=== PATIENT | female | born 1990 | race African-American/Black ===

== ENCOUNTER 2018-09-26 08:05 | Observation (INO) | payer OTHER, SELFPAY ==
[2018-09-26] MEDS ORDERED: Lorazepam 2 MG/ML VIAL ONE (08:27)
[2018-09-26] MEDS ORDERED: Fosphenytoin Sodium 750 MG in Sodium Chloride 0.9% 50 ML IVPB SCH (08:45)
[2018-09-26 08:50] LABS: #Basophils 0.1 thou/uL (0.0-0.2); #Lymphocytes 1.5 thou/uL (1.20-3.40); #Monocytes 0.3 thou/uL (0.11-0.59); #Neutrophils 8.9 thou/uL (1.40-6.50); %Basophils 0.5 % (0.0-1.0); %Eosinophils 0.1 % (0.0-10.0); %Lymphocytes 13.6 % (21.0-51.0); %Monocytes 2.5 % (0.0-10.0); %Neutrophils 83.3 % (42.0-75.0); Hemoglobin 13.1 g/dL (12.0-16.0); Mean Corpuscular HGB CONC 31.9 g/dL (32.0-36.0); Mean Corpuscular Volume 93.8 fL (78.0-98.0); Mean Platelet Volume 6.7 fL (7.4-10.4); Platelet Count 298 thou/uL (130-400); RBC Distribution Width 12.3 % (11.5-14.5); Red Blood Cell (RBC) Count 4.36 mill/uL (4.20-5.40); White Blood Cell (WBC) Count 10.7 thou/uL (4.8-10.8)
[2018-09-26 09:00] LABS: BHCG - Serum Negative (NEGATIVE); Pregs Control Background? CLEAR/WHITE (CLR/WHITE); Pregs Control Bar Appear? YES (CONTROL BAR)
[2018-09-26 09:05] LABS: ALT (SGPT) 10 U/L (8-55); AST (SGOT) 18 U/L (5-34); Acetaminophen Less than 6.0 mcg/mL (10.0-30.0); Albumin 4.1 g/dL (3.5-5.0); Alcohol Less than 10 mg/dL (Less than 10); Alkaline Phosphatase 95 U/L (40-150); Anion Gap 20 mmol/L (10-20); BUN (Urea Nitrogen) 5 mg/dL (7.0-18.7); Bilirubin, Total 0.5 mg/dL (0.2-1.2); Calc. Creatinine Clearance 0 mL/min (70-130); Calcium 8.6 mg/dL (7.8-10.44); Carbon Dioxide 14 mmol/L (22-29); Chloride 107 mmol/L (98-107); Estimated GFR-MDRD Greater than 90; Globulin 3.8 g/dL (2.4-3.5); Glucose 140 mg/dL (70-105); Potassium 3.4 mmol/L (3.5-5.1); Protein, Total 7.9 g/dL (6.0-8.3); Salicylate Less than 8.0 mg/dL (15.0-30.0); Sodium 138 mmol/L (136-145)
[2018-09-26 09:09] LABS: CKMB 1.7 ng/mL (0-6.6); Troponin I Less than 0.010 ng/mL (< 0.028)
[2018-09-26] MEDS ORDERED: Ondansetron PF 4 MG/2 ML Vial ONE (09:13)
[2018-09-26 09:32] LABS: Thyroid Stimulating Hormone 1.7067 uIU/mL (0.35-4.94)
--- NOTE | 2018-09-26 10:46 | CT ---
CT BRAIN WITHOUT CONTRAST: Date: 09/26/18 HISTORY: Seizure. COMPARISON: None. FINDINGS: No acute infarct or hemorrhage. No midline shift or mass effect. Ventricular size and extra-axial CSF spaces are normal. Paranasal sinuses and mastoids are clear. IMPRESSION: No acute intracranial abnormality. POS: [facility]
[2018-09-26 11:04] LABS: Bilirubin Negative (Negative); Blood, Urine Large (Negative); Glucose, Urine (Dipstick) Negative (Negative); Leukocyte Negative (Negative); Nitrite Negative (Negative); Protein, Urine (Dipstick) Negative (Neg-Trace); Specific Gravity, Urine 1.025 (1.005-1.030); Urobilinogen 0.2 mg/dL (0.2-1.0)
[2018-09-26 11:05] LABS: Clarity Clear (Clear)
[2018-09-26 11:16] LABS: Bacteria/HPF None Seen HPF (None Seen); Hyaline Casts/LPF 0-3 HYALINE CAST LPF (0-3 Hyaline); RBC/HPF 0-3 HPF (0-3); Renal Epithelial None Seen HPF (0-3); Transitional Epithelial NONE SEEN HPF (0-3); WBC/HPF 0-3 HPF (0-3)
[2018-09-26 11:20] LABS: Amphetamine Not Detected (NotDetected); Barbiturates Screen Detected (NotDetected); Benzodiazepine Screen Not Detected (NotDetected); Cocaine Metabolite Screen Not Detected (NotDetected); Medtox Control Line Valid? VALID (VALID); Medtox Reader # READER 4; Methadone Not Detected (NotDetected); Methamphetamine Not Detected (NotDetected); Opiate Screen Not Detected (NotDetected); Oxycodone Screen Not Detected (NotDetected); Phencyclidine (PCP) Not Detected (NotDetected); THC/Cannabinoid Screen Not Detected (NotDetected); Tricyclic Screen Not Detected (NotDetected)
[2018-09-26] MEDS ORDERED: Lorazepam 2 MG/ML VIAL SLOW IVP PRN (15:40)
[2018-09-26] MEDS ORDERED: Sodium Chloride 0.9% 1,000 ML IV SCH (15:45)
[2018-09-26] MEDS ORDERED: Ondansetron PF 4 MG/2 ML Vial IVP PRN (15:52)
[2018-09-26] MEDS ORDERED: Ondansetron ODT 4 MG TAB PO PRN (15:52)
[2018-09-26 16:19] VITALS: BMI 26.7
--- NOTE | 2018-09-26 16:23 | HP ---
DATE OF ADMISSION: 09/26/2018 PRIMARY CARE PHYSICIAN: Gil flor. CHIEF COMPLAINT: Seizure. HISTORY OF PRESENT ILLNESS: This is a 28-year-old female who presented to [facility] Emergency Department after apparently a witnessed seizure occurred at her home in the sam y morning hours of 09/26/2018. The history is obtained after discussions with the patient's brother who did witness his sister having a seizure. The patient apparently was supposed to be at latter day. W hen her brother called her to see if she was ready, she did not respond. The brother went to her sravani e where he discovered her in bed having active seizure with frothing at the mouth, tonic clonic type activity, at which point he called EMS. The brother rolled the patient on her side, at which point [facility] personnel arrived and brought the patient in for evaluation. In the emergency room, the patient a pparently was noted with more seizure-like activity by emergency room staff. The patient received Zo karo, Cerebyx and intravenous normal saline. The patient's seizure rapidly responded and the patient states she feels fine currently. The patient was noted by the ER attending with some confusion and postictal state on initial evaluation. The patient denies any known history of seizures, recent trau ma, injury, exposure history, alcohol or drug use. The patient denies any head trauma, recent motor vehicle accidents, unilateral weakness, visual disturbance or sleep deprivation. The patient states she has a remote history of asthma, but does not take any medications on a regular basis. CT imaging of the brain done in the emergency room showed no acute process and screening metabolic survey showe d a mildly elevated prolactin level. PAST MEDICAL HISTORY: Question of childhood asthma. PAST SURGICAL HISTORY: Reviewed and negative. CURRENT MEDICATIONS: Primatene mist p.r.n. ALLERGIES: No known drug allergies. FAMILY HISTORY: No inheritable diseases per patient report. SOCIAL HISTORY: No tobacco or illicit drug use. Occasional alcohol use. Functional of all of activ ities of daily living. 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 REVIEW OF SYSTEMS: The following complete review of systems was negative, unless otherwise mentioned in the HPI or below: Constitutional: Weight loss or gain, ability to conduct usual activities. Sk in: Rash, itching. Eyes: Double vision, pain. ENT/Mouth: Nose bleeding, neck stiffness, pain, te nderness. Cardiovascular: Palpitations, dyspnea on exertion, orthopnea. Respiratory: Shortness of breath, wheezing, cough, hemoptysis, fever or night sweats. Gastrointestinal: Poor appetite, abdom inal pain, heartburn, nausea, vomiting, constipation, or diarrhea. Genitourinary: Urgency, frequenc y, dysuria, nocturia. Musculoskeletal: Pain, swelling. Neurologic/Psychiatric: Anxiety, depressio n. Allergy/Immunologic: Skin rash, bleeding tendency. Otherwise negative except as stated per HPI. PHYSICAL EXAMINATION: VITAL SIGNS: Currently, blood pressure 119/84, pulse 99, respiratory rate 18, temperature 98.7 degre es Fahrenheit, O2 saturation 99% on room air. GENERAL APPEARANCE: This is a 28-year-old female, alert and oriented x3, pleasant, responsive, in no acute distress. HEENT: Pupils are equal, round and reactive to light and accommodation. Extraocular muscles are int act. No scleral icterus. No conjunctival injection. Nares patent. OP is clear. No oral lesions o r lacerations noted. Teeth in good repair. Scalp is atraumatic. NECK: Supple. No cervical adenopathy, no thyromegaly, no carotid bruits, no JVD appreciated. Cervi henny spine with full active and passive range of motion. CHEST: Lungs are clear to auscultation bilaterally. CARDIOVASCULAR: S1, S2, without noted murmur, rub or gallop. ABDOMEN: Flat, soft, nontender, nondistended. Bowel sounds are positive in all four quadrants. The re is no hepatosplenomegaly, no abdominal bruits, no rebound or guarding appreciated. EXTREMITIES: Warm and dry with good turgor. No clubbing, cyanosis or asymmetric edema appreciated. Pulses are palpable distally at the dorsalis pedis, posterior tibial and popliteal arteries bilatera lly. Capillary refill less than 2 seconds. NEUROLOGIC: Cranial nerves II-XII are grossly intact. No focal or lateralizing signs appreciated. PERTINENT LABORATORY AND X-RAY FINDINGS: Sodium 138, potassium 3.4, chloride 107, CO2 of 14, BUN 5, creatinine 0.88, glucose 140, calcium 8.6. LFTs within normal limits. Troponin I negative x1. TSH 1.71. Prolactin level 41.5. Serum beta hCG negative. CBC within normal limits. Urinalysis is nega tive. Urine drug screen dated 09/26/2018 positive for barbiturates. Plasma alcohol level less than 10. CT of the brain without contrast dated 09/26/2018 showed no acute intracranial process. EKG darlin ed 09/26/2018 by my interpretation showed sinus tachycardia with heart rates in the 120s. Normal R-w ave progression noted in the precordial leads. Normal axis. ASSESSMENT AND PLAN: 1. New onset seizure. The patient will be placed in observation status on the stroke unit. Exact e tiology unclear. We will check MRI imaging of the brain. Consult Neurology Service for further eval uation and recommendations. Continue telemetry monitoring. Consider EEG evaluation. Check magnesiu m and phosphorus level in the a.m. 2. Hypokalemia. Mild. Potassium supplementation. Repeat potassium level in the a.m. 3. Prophylaxis. Sequential compression devices while in bed. Pepcid 20 mg p.o. b.i.d. 4. General seizure precautions. 5. Code status is full. Surrogate medical decision maker is the patient's brother.
[2018-09-26] MEDS: Sodium Chloride 0.9% 1,000 ML IV SCH (17:18)
[2018-09-26] MEDS: Acetaminophen 500 MG TAB PO PRN (20:54)
[2018-09-26] MEDS: Famotidine 20 MG TAB PO SCH (20:54)
[2018-09-27] MEDS: Sodium Chloride 0.9% 1,000 ML IV SCH ×2 (03:53→15:14)
[2018-09-27 04:55] LABS: Band 1 % (5-11); Hemoglobin 12.4 g/dL (12.0-16.0); Lymphocytes 22 % (21-51); MDiff Complete? YES; Mean Corpuscular HGB CONC 32.4 g/dL (32.0-36.0); Mean Corpuscular Hemoglobin 29.8 pg (27.0-31.0); Mean Corpuscular Volume 91.9 fL (78.0-98.0); Mean Platelet Volume 6.9 fL (7.4-10.4); Monocytes 6 % (0-10); Neutrophil 65 % (42-75); Platelet Count 259 thou/uL (130-400); RBC Distribution Width 12.2 % (11.5-14.5); Reactive Lymphocytes 6 % (0-10); Red Blood Cell (RBC) Count 4.15 mill/uL (4.20-5.40); White Blood Cell (WBC) Count 5.6 thou/uL (4.8-10.8)
[2018-09-27 05:08] LABS: Anion Gap 9 mmol/L (10-20); BUN (Urea Nitrogen) 4 mg/dL (7.0-18.7); Calc. Creatinine Clearance 128 mL/min (70-130); Calcium 8.6 mg/dL (7.8-10.44); Carbon Dioxide 24 mmol/L (22-29); Chloride 108 mmol/L (98-107); Estimated GFR-MDRD Greater than 90; Glucose 88 mg/dL (70-105); Phosphorus 3.4 mg/dL (2.3-4.7); Potassium 3.6 mmol/L (3.5-5.1); Sodium 137 mmol/L (136-145)
[2018-09-27] MEDS: Famotidine 20 MG TAB PO SCH (08:42)
[2018-09-27 12:19] VITALS: BP 117/73; TEMP 99.6
--- NOTE | 2018-09-27 12:55 | MRI ---
BRAIN MRI WITH AND WITHOUT CONTRAST: HISTORY: New-onset seizure. COMPARISON: None. TECHNIQUE: Brain MRI is performed with and without intravenous Gadolinium administration. Multisequential, m7ul tiplanar imaging is performed. FINDINGS: No hemorrhage on the coronal gradient echo sequence. No parenchymal mass, mass effect, or midline shift. Brain volume is age appropriate. Cortical bowles- white matter differentiation is preserved. The ventricles and sulci are patent and symmetric. The calvarium has a normal T1 marrow signal intensity. The cerebellar tonsils have a pointed appearance and measure approximately 5-6 mm below the foramen m agnum. There is evidence for a mild Chiari-I malformation. No significant T2 or FLAIR white matter hyperintensities. Central arterial flow voids are maintained. No restricted diffusion. Symmetric signal intensity of the hippocampi. No MR evidence of mesial temporal sclerosis. No pathologic enhancement of the brain parenchyma. Adequate aeration of the mastoid air cells. Mild paranasal sinus mucosal thickening. IMPRESSION: 1. Mild Chiari-I malformation. 2. No evidence of mesial temporal sclerosis. 3. No pathologic enhancement of the brain parenchyma. POS: [facility]
[2018-09-27] MEDS: Acetaminophen 500 MG TAB PO PRN (13:15)
--- NOTE | 2018-09-27 23:35 | DIS ---
DATE OF ADMISSION: 09/26/2018 DATE OF DISCHARGE: 09/27/2018 DISCHARGE DIAGNOSES: 1. New onset seizure, etiology unclear. 2. Hypokalemia, resolved. CONSULTATIONS: Dr. Nathen Block with Neurology Service. PERTINENT LABORATORY AND X-RAY FINDINGS: Potassium ranged between 3.4-3.6. TSH 1.71. Prolactin lev el 41.5. Serum beta hCG negative on 09/26/2018. CBC: Within normal limits. Urine drug screen date d 09/26/2018 positive for barbiturates, plasma alcohol level less than 10. CT of the brain without c ontrast dated 09/26/2018 showed no acute intracranial process. MRI of the brain dated 09/27/2018 christiane wed no acute intracranial process. Mild Chiari 1 malformation. HOSPITAL COURSE: The patient was observed on the stroke unit after initially presenting status post seizure treated initially with IV Cerebyx. The patient was given IV fluids and monitored on the tele metry unit. The patient underwent CT and MRI imaging of the brain showing no acute process to explai n patient's presentation. Metabolic screening was essentially unremarkable and patient was evaluated by the Neurology Service. EEG was ordered; however, unable to be performed during the hospital cour se. Current recommendations are for general observation and if the patient does have recurrence to i nitiate treatment with Dilantin. Patient recommended for followup on an outpatient basis with Neurol ogy Service. Overall, patient did remain clinically stable during the hospital course, tolerating re gular oral intake, ambulating without assistance or difficulty with stable vital signs. I have exami anthony the patient at the time of discharge and discussed followup instructions. The patient overall cl inically stable and ready for discharge on 09/27/2018. DISCHARGE MEDICATIONS: None. FOLLOWUP: The patient may follow up with Dr. Nathen Block with Neurology Service and to call his off ice for appointment time and date. CONDITION ON DISCHARGE: Stable. ACTIVITY: Ad karan. DIET: Regular. CODE STATUS: FULL. DISPOSITION: Home 09/27/2018.
== END 2018-09-27 15:30 | disposition home or self-care (01) ==
LOC: EEVIPCON 08:05 → ERS 08:05 → INTOOBSV 11:56 → ERHOLD 11:56 → 2SE 15:41
PROVIDERS: ADMIT Family Medicine; ATTEND Family Medicine
DX: R56.9 Unspecified convulsions (principal); E87.6 Hypokalemia; Z91.013 Allergy to seafood
CPT/HCPCS: 36415; 70450; 70553; 80048; 80053; 80306; 80307; 81003; 81015; 82553; 83735; 84100; 84146; 84443; 84484; 84703; 85007; 85025; 85027; 93005; 96361; 96365; 96375; G0378; J2060; J2405; J7050; Q2009

== ENCOUNTER 2019-05-29 09:33 | Emergency (ER) | payer SELFPAY ==
[2019-05-29 10:22] LABS: #Lymphocytes 1.7 thou/uL (1.20-3.40); #Monocytes 0.6 thou/uL (0.11-0.59); #Neutrophils 13.2 thou/uL (1.40-6.50); %Basophils 0.2 % (0.0-1.0); %Eosinophils 0.1 % (0.0-10.0); %Monocytes 3.5 % (0.0-10.0); %Neutrophils 85.1 % (42.0-75.0); Hemoglobin 13.8 g/dL (12.0-16.0); Mean Corpuscular Volume 94.3 fL (78.0-98.0); Mean Platelet Volume 6.9 fL (7.4-10.4); Platelet Count 292 thou/uL (130-400); RBC Distribution Width 12.7 % (11.5-14.5); Red Blood Cell (RBC) Count 4.17 mill/uL (4.20-5.40); White Blood Cell (WBC) Count 15.5 thou/uL (4.8-10.8)
--- NOTE | 2019-05-29 10:32 | CT ---
CT head without contrast: Multiple axial tomograms obtained through the head without IV enhancement. INDICATIONS: Seizure COMPARISON: MRI brain 09/27/2018 FINDINGS: Ventricles have normal size and position. No evidence of intracranial mass, hemorrhage, edema, or infarct. Chiari I noted on prior MRI. Visualized sinuses and mastoids appear clear. Bony calvarium appears unremarkable. IMPRESSION: No acute finding
[2019-05-29 10:47] LABS: ALT (SGPT) 13 U/L (8-55); AST (SGOT) 20 U/L (5-34); Albumin 4.4 g/dL (3.5-5.0); Alkaline Phosphatase 88 U/L (40-150); Anion Gap 21 mmol/L (10-20); BUN (Urea Nitrogen) 8 mg/dL (7.0-18.7); Bilirubin, Total 0.7 mg/dL (0.2-1.2); Calc. Creatinine Clearance 0 mL/min (70-130); Calcium 9.3 mg/dL (7.8-10.44); Carbon Dioxide 15 mmol/L (22-29); Chloride 105 mmol/L (98-107); Estimated GFR-MDRD Greater than 90; Globulin 3.6 g/dL (2.4-3.5); Glucose 144 mg/dL (70-105); Potassium 3.5 mmol/L (3.5-5.1); Sodium 137 mmol/L (136-145)
[2019-05-29 11:10] LABS: Pregnancy Test - Urine (BHCG) Negative (Negative); Pregu Control Background? CLEAR/WHITE (CLR/WHITE); Pregu Control Bar Appear? YES (CONTROL BAR); Specific Gravity 1.014 (1.002-1.036)
[2019-05-29 11:20] LABS: Amphetamine Not Detected (NotDetected); Barbiturates Screen Not Detected (NotDetected); Benzodiazepine Screen Not Detected (NotDetected); Cocaine Metabolite Screen Not Detected (NotDetected); Medtox Control Line Valid? VALID (VALID); Medtox Reader # READER 1; Methadone Not Detected (NotDetected); Methamphetamine Not Detected (NotDetected); Opiate Screen Not Detected (NotDetected); Oxycodone Screen Not Detected (NotDetected); Phencyclidine (PCP) Not Detected (NotDetected); THC/Cannabinoid Screen Not Detected (NotDetected); Tricyclic Screen Not Detected (NotDetected)
[2019-05-29] MEDS ORDERED: Ondansetron ODT 4 MG TAB ONE (13:01)
[2019-05-29] MEDS ORDERED: Ondansetron PF 4 MG/2 ML Vial ONE (13:04)
== END 2019-05-29 14:10 | disposition home or self-care (01) ==
LOC: ERS 09:33
DX: S00.531A Contusion of lip, initial encounter (principal); R56.9 Unspecified convulsions; X58.XXXA Exposure to other specified factors, initial encounter
CPT/HCPCS: 70450; 80053; 80306; 81025; 84146; 85025; 96374; J2405; Q0162

== ENCOUNTER 2020-03-16 12:54 | Inpatient (IN) | payer OTHER, SELFPAY ==
[2020-03-16] MEDS ORDERED: Diazepam 10 MG/2 ML SYRINGE ONE (13:03)
[2020-03-16 13:11] LABS: #Lymphocytes 0.8 thou/uL (1.20-3.40); #Monocytes 0.4 thou/uL (0.11-0.59); #Neutrophils 16.3 thou/uL (1.40-6.50); %Basophils 0.1 % (0.0-1.0); %Lymphocytes 4.3 % (21.0-51.0); %Monocytes 2.3 % (0.0-10.0); %Neutrophils 93.3 % (42.0-75.0); Hemoglobin 12.9 g/dL (12.0-16.0); Mean Corpuscular HGB CONC 33.8 g/dL (32.0-36.0); Mean Corpuscular Hemoglobin 31.5 pg (27.0-31.0); Mean Corpuscular Volume 93.3 fL (78.0-98.0); Mean Platelet Volume 6.9 fL (7.4-10.4); Platelet Count 342 thou/uL (130-400); RBC Distribution Width 12.2 % (11.5-14.5); White Blood Cell (WBC) Count 17.5 thou/uL (4.8-10.8)
[2020-03-16] MEDS ORDERED: Acetaminophen 650 MG Suppository ONE (13:21)
[2020-03-16 13:33] LABS: ALT (SGPT) 13 U/L (8-55); AST (SGOT) 20 U/L (5-34); Albumin 4.1 g/dL (3.5-5.0); Alkaline Phosphatase 94 U/L (40-110); Anion Gap 16 mmol/L (10-20); BUN (Urea Nitrogen) 8 mg/dL (7.0-18.7); Bilirubin, Total 0.3 mg/dL (0.2-1.2); Calc. Creatinine Clearance 0 mL/min (70-130); Calcium 8.5 mg/dL (7.8-10.44); Carbon Dioxide 15 mmol/L (22-29); Chloride 110 mmol/L (98-107); Estimated GFR-MDRD 68; Globulin 3.9 g/dL (2.4-3.5); Glucose 147 mg/dL (70-105); Potassium 3.7 mmol/L (3.5-5.1); Sodium 137 mmol/L (136-145)
--- NOTE | 2020-03-16 13:48 | RAD ---
Exam: Chest one view HISTORY:Seizure Comparison: None FINDINGS: Cardiac silhouette: Normal Aorta: Unremarkable Pulmonary vessels: Normal Costophrenic angles: Clear LUNGS: No masses or consolidation. Pneumothorax: None Osseous abnormalities: None IMPRESSION: No acute cardiopulmonary process.
--- NOTE | 2020-03-16 15:35 | CT ---
CT OF THE BRAIN WITHOUT CONTRAST: 03/16/20 INDICATION: 29-year-old female with history of seizures. COMPARISON: Prior exam dated 05/29/19. FINDINGS: No definite acute infarct, hemorrhage or hydrocephalus is present. Septum pellucidum and third ventri aislinn are midline. Skull and extracranial soft tissue appear within normal limits. IMPRESSION: No acute intracranial abnormality demonstrated. POS: [facility]
[2020-03-16] MEDS ORDERED: levETIRAcetam 1000 MG/100 ML PREMIX BAG ONE (15:41)
[2020-03-16] MEDS ORDERED: cefTRIAXone\\ROCEPHIN 2 GM VIAL ONE (17:06)
[2020-03-16 17:12] LABS: CSF Source CSF; Clarity Clear (Clear); Tube # 4
[2020-03-16 17:17] LABS: CSF Source CSF; Clarity Clear (Clear); Tube # 1
[2020-03-16 17:22] LABS: Bilirubin Small (Negative); Blood, Urine Large (Negative); Clarity Cloudy (Clear); Glucose, Urine (Dipstick) Negative (Negative); Leukocyte Negative (Negative); Nitrite Negative (Negative); Protein, Urine (Dipstick) > or equal to 300 mg/dL (Neg-Trace); Urobilinogen 0.2 mg/dL (Less than 2)
[2020-03-16 17:23] LABS: Pregnancy Test - Urine (BHCG) Negative (Negative); Pregu Control Background? CLEAR/WHITE (CLR/WHITE); Pregu Control Bar Appear? YES (CONTROL BAR)
[2020-03-16 17:23] LABS: CSF, Glucose 90 mg/dl (40-70); CSF, Protein 76 mg/dL (15-40)
[2020-03-16 17:25] LABS: RBC/HPF Greater than 50 HPF (0-3)
[2020-03-16 17:26] LABS: Bacteria/HPF 3+ HPF (None Seen); Renal Epithelial 0-3 HPF (None Seen)
[2020-03-16 17:30] LABS: Amphetamine Not Detected (NotDetected); Barbiturates Screen Not Detected (NotDetected); Benzodiazepine Screen Detected (NotDetected); Cocaine Metabolite Screen Not Detected (NotDetected); Medtox Control Line Valid? VALID (VALID); Medtox Reader # READER 1; Methadone Not Detected (NotDetected); Methamphetamine Not Detected (NotDetected); Opiate Screen Not Detected (NotDetected); Oxycodone Screen Not Detected (NotDetected); Phencyclidine (PCP) Not Detected (NotDetected); THC/Cannabinoid Screen Not Detected (NotDetected); Tricyclic Screen Not Detected (NotDetected)
[2020-03-16 17:56] LABS: Color Of CSF Supernatant COLORLESS (Colorless); Tube # 2; Unspun CSF Color COLORLESS (Colorless)
[2020-03-16] MEDS ORDERED: hydrALAZINE 20 MG/ML VIAL SLOW IVP PRN (19:05)
[2020-03-16] MEDS ORDERED: Lorazepam 2 MG/ML VIAL SLOW IVP PRN (19:05)
[2020-03-16] MEDS ORDERED: Ondansetron PF 4 MG/2 ML Vial IVP PRN (19:05)
[2020-03-16] MEDS ORDERED: Acetaminophen 325 MG TAB PO PRN (19:05)
[2020-03-16 20:56] LABS: Lactic Acid 2.2 mmol/L (0.5-2.2)
--- NOTE | 2020-03-16 21:58 | HP ---
PRIMARY CARE PHYSICIAN: Gil Donis. CHIEF COMPLAINT: Seizing. HISTORY OF PRESENT ILLNESS: Ms. Diaz is a 29-year-old female, who was brought in to the hospital by family. She has a history of seizure disorder. She was diagnosed at our facility back in September of 2018. At that time, there was no evidence for the cause of the seizure. Since then, she has been reportedly on Keppra according to her significant other. He says that she is compliant with her medications. Apparently, he found her actively seizing while she was on the couch. She was still seizing upon arrival to the ED. She was given a total of four of Ativan and she continued to seize. She was given another 2 mg of Ativan in the ER followed by a total of 15 mg of Valium, five in the ambulance and then 10 mg of Valium in the ER. This controlled her seizures. She was then subsequently loaded with Keppra and is being admitted for further evaluation. Given that she also had a fever, she was noted to have a temperature of a 102. She is also tachycardic and has an elevated white count and for this reason, she is being ruled out for not only sepsis but for COVID-19. There is no sick contacts known however. Otherwise, no other history is obtainable as the patient is currently unresponsive, likely postictal. REVIEW OF SYSTEMS: Unobtainable due to the patient being unresponsive. PAST MEDICAL HISTORY: Significant for seizures, which was diagnosed back in September of 2018. Also possible history of asthma. PAST SURGICAL HISTORY: In the remainder of the past medical history taken from the history and physical from September 26, 2018, and this is negative for any known past medical history. ALLERGIES: NO KNOWN DRUG ALLERGIES. 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 FAMILY HISTORY: Unknown. CURRENT MEDICATIONS: Reported to be Keppra, however, I do not know the dose. PHYSICAL EXAMINATION: GENERAL: She is lethargic. She will respond to pain. She will grimace, but otherwise she keeps her eyes closed and just groans. She is actually well developed and well nourished. VITAL SIGNS: Blood pressure is 112/57, heart rate 109, respiratory rate of 22, and her temperature was 101.8 axillary. HEENT: Her head is normocephalic, atraumatic. Pupils are dilated and reactive. On her tympanic membranes, there is no fluid behind the drum. There is no redness. NECK: There is no adenopathy. No audible bruits. LUNGS: Clear to auscultation. There is no wheezing. No rales. No rhonchi CARDIOVASCULAR: Heart rate is tachycardic, it is regular. There is no appreciable murmurs, no clicks, no rubs. ABDOMEN: Soft, nontender, and nondistended. Positive for bowel sounds. There is no rebound, no guarding, no organomegaly. EXTREMITIES: There is no clubbing or cyanosis. No edema. No joint effusions. NEUROLOGIC: Again, she is obtunded and unresponsive other than to pain. Her reflexes however are 2+ and symmetric in her upper and lower extremities at the brachioradialis and the patella and there is no Babinski. There is no obvious nuchal rigidity. SKIN AND INTEGUMENT: There are no skin changes. No rash. LABORATORY DATA: White blood cell count was 17.5, hemoglobin 12.9, hematocrit is 38.3, and platelet count was 342. Sodium 137, potassium 3.7, chloride is 110, CO2 is 15, BUN of 8, creatinine 1.15, glucose is 147. She had a CT scan of the brain showing no acute intracranial abnormalities . This is by my reading, she also had a chest x-ray done which appears heart size normal. There was no evidence of any infiltrates or effusions or significant airspace disease that is by my reading and an LP has just been done. However, the results are not currently back yet. ASSESSMENT: This is a 29-year-old female, who has a history of previous seizures, who presents today with an acute seizure with status epilepticus which took several milligrams of both Ativan and Valium in order to control the seizures. She also has a fever and it meets sepsis criteria. She will be admitted to the [facility]. She has already been loaded with IV Keppra. We will place her on seizure precautions and Ativan p.r.n. We will need to treat her empirically for meningitis until the results of the CSF can become available. We will be treating her with Rocephin and vancomycin as well as IV acyclovir, given that she had the seizure and fever. We will also consider ID consult depending on the results of the CSF. Consult Neurology as well and we will need to get hopefully further history from the patient or patient's family to help further clarify her recent history of present illness with regard to whether or not she has been having seizures despite medication, etc. Job ID: [id number]
[2020-03-16] MEDS: Lactated Ringer's 1,000 ML IV SCH (22:04)
[2020-03-16] MEDS: Famotidine/PF 20 mg/2ml Vial SLOW IVP SCH (22:05)
[2020-03-16] MEDS ORDERED: Acyclovir Sodium 600 MG in Sodium Chloride 0.9% 100 ML IVPB SCH (22:30)
[2020-03-17 04:07] LABS: #Lymphocytes 1.2 thou/uL (1.20-3.40); #Monocytes 1.2 thou/uL (0.11-0.59); #Neutrophils 12.3 thou/uL (1.40-6.50); %Basophils 0.1 % (0.0-1.0); %Eosinophils 0.1 % (0.0-10.0); %Lymphocytes 8.4 % (21.0-51.0); %Monocytes 8.1 % (0.0-10.0); %Neutrophils 83.5 % (42.0-75.0); Hemoglobin 13.2 g/dL (12.0-16.0); Mean Corpuscular HGB CONC 33.8 g/dL (32.0-36.0); Mean Corpuscular Hemoglobin 31.4 pg (27.0-31.0); Platelet Count 267 thou/uL (130-400); RBC Distribution Width 12.4 % (11.5-14.5); Red Blood Cell (RBC) Count 4.21 mill/uL (4.20-5.40); White Blood Cell (WBC) Count 14.8 thou/uL (4.8-10.8)
[2020-03-17 04:26] LABS: Anion Gap 14 mmol/L (10-20); BUN (Urea Nitrogen) 7 mg/dL (7.0-18.7); Calc. Creatinine Clearance 126 mL/min (70-130); Calcium 8.3 mg/dL (7.8-10.44); Carbon Dioxide 17 mmol/L (22-29); Chloride 111 mmol/L (98-107); Estimated GFR-MDRD Greater than 90; Glucose 92 mg/dL (70-105); Magnesium 2.3 mg/dL (1.6-2.6); Potassium 3.7 mmol/L (3.5-5.1); Sodium 138 mmol/L (136-145)
[2020-03-17] MEDS ORDERED: cefTRIAXone\\ROCEPHIN 2 GM in Sodium Chloride 0.9% 100 ML IVPB SCH (05:00)
[2020-03-17] MEDS: Lactated Ringer's 1,000 ML IV SCH ×3 (05:56→17:03)
[2020-03-17] MEDS: Acetaminophen 650 MG Suppository PR PRN ×2 (06:22→21:17)
[2020-03-17] MEDS: Acyclovir Sodium 600 MG in Sodium Chloride 0.9% 100 ML IVPB SCH ×3 (07:54→21:01)
[2020-03-17] MEDS: Enoxaparin Sodium 40 MG/0.4 ML SYRINGE SC SCH (07:55)
[2020-03-17] MEDS: Famotidine/PF 20 mg/2ml Vial SLOW IVP SCH ×2 (07:55→20:58)
[2020-03-17] MEDS ORDERED: Vancomycin HCl 1.25 GM in Sodium Chloride 0.9% 250 ML 250 ML IVPB SCH (09:00)
--- NOTE | 2020-03-17 10:42 | CON ---
DATE OF CONSULTATION: 03/17/2020 CONSULTING PHYSICIAN: Hospitalist Service. IMPRESSION: Status epilepticus, now in a postictal state. PLAN: Continue Keppra 750 mg twice a day. HISTORY OF PRESENT ILLNESS: Ms. Wade is a 29-year-old black female, who had a known history of seizures. She reportedly was taking Keppra, is unclear as to what her home dosing was. She developed repetitive seizures. She was taken to the emergency room and treated with Ativan and Valium. She was subsequently admitted to the intensive care unit. She had a lumbar puncture done, which showed 5 white cells and a slightly elevated protein of 75 and normal glucose. She is pending COVID rule out. Her CT of the brain was unremarkable. She has not had any further seizures since admission to the ICU. She is otherwise reportedly healthy. PAST MEDICAL HISTORY: Asthma. ALLERGIES: NONE REPORTED. SOCIAL HISTORY: Unknown. FAMILY HISTORY: Unknown. REVIEW OF SYSTEMS: Not obtainable. PHYSICAL EXAMINATION: VITAL signs: Her vital signs have been stable. She is afebrile. HEENT: Pupils are equal. Conjunctivae are clear. NECK: Supple. EXTREMITIES: No cyanosis or edema. NEUROLOGIC: She is quite lethargic and is only currently responding to painful stimuli. There are no focal findings noted. No abnormal movements are seen. IMAGING DATA: EKG shows sinus rhythm. SUMMARY: This is a young woman, who had repetitive seizures and received quite a bit of sedatives. Her workup thus far is otherwise negative. I would continue her Keppra and she will likely clear her mental status over the day. Job ID: [id number]
[2020-03-17 13:19] LABS: SARS-CoV-2 MS2 Positive; SARS-CoV-2 N Gene Negative; SARS-CoV-2 S Gene Negative; SARS-CoV-2 orf1ab Negative
[2020-03-17 16:21] LABS: Actual Bicarbonate (HCO3a) 17.2 mEq/L (22-28); Base Excess (BEa) -5.9 mEq/L (-2.0 to +3.0); CO2 Tension 27.3 mmHg (35.0-45.0); Calcium, Ionized 1.15 mmol/L (1.12-1.30); Carboxyhemoglobin (COHb) 0.5 gm% (0.0-3.0); Hemoglobin (Hb) 12.6 g/dL (12.0-16.0); O2 Tension (PaO2), arterial 87.3 mmHg (80.0-100.0); Potassium - ABG Lab 3.54 mmol/L (3.70-5.30); pH, Arterial 7.42 (7.35-7.45)
[2020-03-17 16:30] LABS: ALV-art Gradient 28.305 (0-20); Puncture Site RRAD
[2020-03-18] MEDS: Lactated Ringer's 1,000 ML IV SCH ×3 (00:33→23:33)
[2020-03-18] MEDS: Acyclovir Sodium 600 MG in Sodium Chloride 0.9% 100 ML IVPB SCH (05:19)
[2020-03-18 08:59] LABS: #Lymphocytes 1.5 thou/uL (1.20-3.40); #Monocytes 0.8 thou/uL (0.11-0.59); %Basophils 0.1 % (0.0-1.0); %Eosinophils 0.1 % (0.0-10.0); %Lymphocytes 9.6 % (21.0-51.0); %Monocytes 5.1 % (0.0-10.0); %Neutrophils 85.2 % (42.0-75.0); Hemoglobin 11.9 g/dL (12.0-16.0); Mean Corpuscular HGB CONC 34.1 g/dL (32.0-36.0); Mean Corpuscular Hemoglobin 31.2 pg (27.0-31.0); Mean Corpuscular Volume 91.7 fL (78.0-98.0); Mean Platelet Volume 7.2 fL (7.4-10.4); Platelet Count 262 thou/uL (130-400); RBC Distribution Width 12.3 % (11.5-14.5); Red Blood Cell (RBC) Count 3.82 mill/uL (4.20-5.40); White Blood Cell (WBC) Count 15.2 thou/uL (4.8-10.8)
--- NOTE | 2020-03-18 09:07 | CT ---
CT BRAIN NONCONTRAST: DATE: 03/18/2020 HISTORY: 29-year-old female status post seizure with postictal decreased level of consciousness and gaze devia tion. FINDINGS: There is no evidence of acute intra-axial or extra-axial hemorrhage. There is no midline shift or any other mass effect. There is no extra-axial fluid collection. There is no evidence of obstructive hydrocephalus. Calvarium is intact. IMPRESSION: No acute intracranial findings.
[2020-03-18 09:20] LABS: ALT (SGPT) 87 U/L (8-55); AST (SGOT) 280 U/L (5-34); Albumin 3.3 g/dL (3.5-5.0); Alkaline Phosphatase 75 U/L (40-110); Anion Gap 11 mmol/L (10-20); BUN (Urea Nitrogen) 7 mg/dL (7.0-18.7); Calc. Creatinine Clearance 138 mL/min (70-130); Calcium 8.6 mg/dL (7.8-10.44); Carbon Dioxide 20 mmol/L (22-29); Chloride 109 mmol/L (98-107); Estimated GFR-MDRD Greater than 90; Globulin 3.4 g/dL (2.4-3.5); Glucose 101 mg/dL (70-105); Potassium 3.9 mmol/L (3.5-5.1); Protein, Total 6.7 g/dL (6.0-8.3); Sodium 136 mmol/L (136-145)
[2020-03-18] MEDS: levETIRAcetam In NaCl (Iso-Os) 1,000 MG in Premix Bag 1 BAG IVPB SCH ×2 (09:31→20:20)
--- NOTE | 2020-03-18 09:35 | PDOC.HOSPP ---
- Subjective Encounter Date: 03/17/20 Encounter Time: 15:00 Subjective: pt snoring not responsive to verbal or touch stimuli. - Objective Vital Signs & Weight: Vital Signs (12 hours) Temp Pulse Ox 03/18/20 08:00 96 03/18/20 07:00 98.6 F 03/18/20 03:00 99.1 F 03/17/20 23:00 99.7 F H Weight Weight 158 lb 2 oz Most Recent Monitor Data Heart Rate from ECG 67 NIBP 127/85 NIBP BP-Mean 99 Respiration from ECG 15 SpO2 97 I&O: 03/17/20 03/18/20 03/19/20 06:59 06:59 06:59 Intake Total 1551 2490 Output Total 1305 1170 Balance 246 1320 Result Diagrams: 03/18/20 08:49 03/18/20 08:49 Hospitalist ROS - Review of Systems Other: unable to obtain - Medication Medications: Active Medications Generic Name Dose Route Start Last Admin Trade Name Freq PRN Reason Stop Dose Admin Acetaminophen 650 mg 03/16/20 19:05 03/17/20 21:17 Tylenol PA 650 mg Q4H PRN Administration Headache/Fever/Mild Pain (1-3) Enoxaparin Sodium 40 mg 03/17/20 09:00 03/17/20 07:55 Lovenox SC 40 mg 0900 DAFNE Administration Famotidine 20 mg 03/16/20 21:00 03/17/20 20:58 Pepcid SLOW IVP 20 mg Q12HR DAFNE Administration Lactated Ringer's 1,000 mls @ 100 mls/hr 03/16/20 19:05 03/18/20 00:33 Lactated Ringer's IV 1,000 mls .Q10H DAFNE Administration Levetiracetam 1,000 mg/ Device 100 mls @ 200 mls/hr 03/18/20 09:00 03/18/20 09:31 IVPB 100 mls BID DAFNE Administration Sodium Chloride 10 ml 03/17/20 09:00 03/17/20 20:59 Flush - Normal Saline IVF 10 ml Q12HR DAFNE Administration - Exam Heart: negative: RRR, no murmur, no gallops, no rubs, normal peripheral pulses, irregular, diminshed peripheral pulses, murmur present, II/IV, III/IV Respiratory: negative: CTAB, no wheezes, no rales, no ronchi, normal chest expansion, no tachypnea, normal percussion, rales, rhonchi, tachypneic, wheezes Gastrointestinal: negative: soft, non-tender, non-distended, normal bowel sounds , no palpable masses, no hepatomegaly, no splenomegaly, no bruit, no guarding, no rigidity, tender to palpation, distended, diminished bowl sounds, voluntary guarding Neurological - other findings: pt's pupils are reactive, she is not following commands Hosp A/P (1) Seizure Code(s): R56.9 - UNSPECIFIED CONVULSIONS Status: Acute - Plan per family she has been taking her antiseizure meds. she received Ativan and Valium per ems however she continued to have seizure so was given a total of 10mg of Valium in the ER and was given keppra iv. Her LP was normal so her abx will be discontinued. will get a abg. She could be post ictal vs sedated from all the medications she received from the ER.
[2020-03-18] MEDS: Enoxaparin Sodium 40 MG/0.4 ML SYRINGE SC SCH (09:37)
[2020-03-18] MEDS: Famotidine/PF 20 mg/2ml Vial SLOW IVP SCH ×2 (09:37→20:20)
--- NOTE | 2020-03-18 10:52 | PRG ---
DATE OF SERVICE: 03/18/2020 CONSULTING PHYSICIAN: Hospitalist Service. SUBJECTIVE: Ms. Wade has failed to regain consciousness since yesterday. There has been no visible seizure activity. Her vital signs have been stable. She has been afebrile. Laboratory studies showed an elevated liver enzyme panel, but her ammonia level is normal. She is continued on Keppra and Dilantin 1 g has been ordered. EEG will be done today to see if she is having subclinical seizures. At this juncture, she remains minimally responsive to stimulation. Her plantar responses are downgoing bilaterally. She has a right gaze preference. Her doll's eye maneuver is intact with conjugate movements. At this point, subclinical seizure activity would seem to be the leading possibility. Her COVID screen was negative. We will follow up on EEG and make further recommendations. Job ID: [id number]
--- NOTE | 2020-03-18 12:26 | MRI ---
MRI BRAIN WITH AND WITHOUT CONTRAST: DATE: 03/18/2020 HISTORY: 29-year-old female with persistent decreased level of consciousness after seizure. Abnormal EEG. COMPARISON: None TECHNIQUE: Multiplanar, multisequence MRI of the brain performed pre- and post-IV injection of gadolinium based contrast agent. FINDINGS: Cerebellar tonsils protrude inferior to the foramen magnum a distance of approximately 5 or 6 mm. There are bilaterally symmetrical moderate sized patchy regions of mildly to moderately restricted di ffusion involving bilateral posterior parietal and occipital lobes, including occipital poles. There is milder such involvement of bilateral magen Rolandic regions in upper cerebrum. No evidence of recent or remote intra-axial hemorrhage. Ventricles are normal in size and configurati on. No abnormal intra-axial enhancement, mass, mass effect, midline shift, or extra-axial fluid collection. Prominent enhancement of leptomeningeal blood vessels diffusely throughout supratentorial brain and posterior fossa. No evidence of mesial temporal sclerosis. No midline shift. IMPRESSION: 1. Evidence for PRES (posterior reversible encephalopathy syndrome) 2. Mild Chiari I malformation.
[2020-03-18] MEDS: Dexamethasone 4 mg/ml Vial SLOW IVP SCH ×2 (13:36→21:24)
--- NOTE | 2020-03-18 13:59 | PDOC.HOSPP ---
- Subjective Encounter Date: 03/18/20 Encounter Time: 08:45 - Objective Vital Signs & Weight: Vital Signs (12 hours) Temp Pulse Ox 03/18/20 08:00 96 03/18/20 07:00 98.6 F 03/18/20 03:00 99.1 F Weight Weight 158 lb 2 oz Most Recent Monitor Data Heart Rate from ECG 68 NIBP 126/81 NIBP BP-Mean 96 Respiration from ECG 17 SpO2 96 I&O: 03/17/20 03/18/20 03/19/20 06:59 06:59 06:59 Intake Total 1551 2490 Output Total 1305 1170 Balance 246 1320 Result Diagrams: 03/18/20 08:49 03/18/20 08:49 Hospitalist ROS - Review of Systems Other: unable to obtain - Medication Medications: Active Medications Generic Name Dose Route Start Last Admin Trade Name Freq PRN Reason Stop Dose Admin Acetaminophen 650 mg 03/16/20 19:05 03/17/20 21:17 Tylenol [place] 650 mg Q4H PRN Administration Headache/Fever/Mild Pain (1-3) Dexamethasone 4 mg 03/18/20 14:00 03/18/20 13:36 Decadron SLOW IVP 4 mg Q8HR DAFNE Administration Enoxaparin Sodium 40 mg 03/17/20 09:00 03/18/20 09:37 Lovenox SC 40 mg 0900 DAFNE Administration Famotidine 20 mg 03/16/20 21:00 03/18/20 09:37 Pepcid SLOW IVP 20 mg Q12HR DAFNE Administration Lactated Ringer's 1,000 mls @ 100 mls/hr 03/16/20 19:05 03/18/20 13:36 Lactated Ringer's IV 1,000 mls .Q10H DAFNE Administration Levetiracetam 1,000 mg/ Device 100 mls @ 200 mls/hr 03/18/20 09:00 03/18/20 09:31 IVPB 100 mls BID DAFNE Administration Fosphenytoin Sodium 1,000 mg/ 70 mls @ 100 mls/hr 03/18/20 09:45 03/18/20 09: 46 Sodium Chloride IVPB 03/18/20 14:00 70 mls NOW DAFNE Administration Sodium Chloride 10 ml 03/17/20 09:00 03/18/20 09:35 Flush - Normal Saline IVF 10 ml Q12HR DAFNE Administration - Exam Heart: negative: RRR, no murmur, no gallops, no rubs, normal peripheral pulses, irregular, diminshed peripheral pulses, murmur present, II/IV, III/IV Respiratory: negative: CTAB, no wheezes, no rales, no ronchi, normal chest expansion, no tachypnea, normal percussion, rales, rhonchi, tachypneic, wheezes Gastrointestinal: negative: soft, non-tender, non-distended, normal bowel sounds , no palpable masses, no hepatomegaly, no splenomegaly, no bruit, no guarding, no rigidity, tender to palpation, distended, diminished bowl sounds, voluntary guarding Neurological - other findings: pupils are reactive, does not follow commands, Hosp A/P (1) Seizure Code(s): R56.9 - UNSPECIFIED CONVULSIONS Status: Acute - Plan per family she has been taking her antiseizure meds. she received Ativan and Valium per ems however she continued to have seizure so was given a total of 10mg of Valium in the ER and was given keppra iv. Her LP was normal so her abx will be discontinued. will get a abg. She could be post ictal vs sedated from all the medications she received from the ER. 5/3 PT is not awake, neuro called case discussed will get stat ct brain and eeg for subclinical seizure. may need MRI brain also. I called pt's family and updated them about what was going on.
[2020-03-18] MEDS: Acetaminophen 650 MG Suppository PR PRN (20:21)
[2020-03-19] MEDS: Dexamethasone 4 mg/ml Vial SLOW IVP SCH ×3 (05:41→21:16)
[2020-03-19 07:55] LABS: ALT (SGPT) 164 U/L (8-55); AST (SGOT) 467 U/L (5-34); Albumin 3.5 g/dL (3.5-5.0); Alkaline Phosphatase 85 U/L (40-110); Anion Gap 15 mmol/L (10-20); BUN (Urea Nitrogen) 8 mg/dL (7.0-18.7); Bilirubin, Total 0.8 mg/dL (0.2-1.2); Calc. Creatinine Clearance 137 mL/min (70-130); Calcium 8.6 mg/dL (7.8-10.44); Carbon Dioxide 20 mmol/L (22-29); Chloride 106 mmol/L (98-107); Estimated GFR-MDRD Greater than 90; Globulin 3.8 g/dL (2.4-3.5); Glucose 114 mg/dL (70-105); Potassium 4.4 mmol/L (3.5-5.1); Protein, Total 7.3 g/dL (6.0-8.3); Sodium 137 mmol/L (136-145)
[2020-03-19] MEDS: Acyclovir Sodium 600 MG in Sodium Chloride 0.9% 100 ML IVPB SCH ×2 (09:14→17:04)
[2020-03-19] MEDS: levETIRAcetam In NaCl (Iso-Os) 1,000 MG in Premix Bag 1 BAG IVPB SCH ×2 (09:15→21:15)
[2020-03-19] MEDS: Enoxaparin Sodium 40 MG/0.4 ML SYRINGE SC SCH (09:15)
[2020-03-19] MEDS: Famotidine/PF 20 mg/2ml Vial SLOW IVP SCH ×2 (09:15→21:16)
[2020-03-19] MEDS: Lactated Ringer's 1,000 ML IV SCH ×2 (09:16→21:11)
--- NOTE | 2020-03-19 09:44 | ULT ---
RIGHT UPPER QUADRANT ULTRASOUND: Date: 03/19/2020 HISTORY: Elevated LFTs. FINDINGS: The liver, pancreas, and right kidney are normal. There is a 1.9 cm shadowing gallstone with sludge in the gallbladder. No gallbladder wall thickening or pericholecystic fluid is seen. No free fluid is seen in Morison's pouch. IMPRESSION: Cholelithiasis. POS: MZA
[2020-03-19 10:53] LABS: Band 1 % (5-11); Hemoglobin 12.8 g/dL (12.0-16.0); Lymphocytes 5 % (21-51); MDiff Complete? YES; Mean Corpuscular HGB CONC 35.5 g/dL (32.0-36.0); Mean Corpuscular Hemoglobin 31.9 pg (27.0-31.0); Mean Platelet Volume 7.7 fL (7.4-10.4); Monocytes 5 % (0-10); Neutrophil 88 % (42-75); Platelet Count 240 thou/uL (130-400); Promyelocytes 1 % (0-0); RBC Morphology Normal; Red Blood Cell (RBC) Count 4.02 mill/uL (4.20-5.40); White Blood Cell (WBC) Count 20.1 thou/uL (4.8-10.8)
--- NOTE | 2020-03-19 12:45 | PDOC.HOSPP ---
- Subjective Encounter Date: 03/19/20 Subjective: Neurology Progress Note Patient continues to be unresponsive. Does not follow commands. - Objective Vital Signs & Weight: Vital Signs (12 hours) Temp Pulse Ox 03/19/20 11:34 99.9 F H 03/19/20 07:45 98 03/19/20 07:00 98.2 F 03/19/20 03:00 98.7 F Weight Weight 156 lb 3 oz Most Recent Monitor Data Heart Rate from ECG 84 NIBP 123/101 NIBP BP-Mean 108 Respiration from ECG 15 SpO2 97 I&O: 03/18/20 03/19/20 03/20/20 06:59 06:59 06:59 Intake Total 2490 2390 Output Total 1170 2400 Balance 1320 -10 Result Diagrams: 03/19/20 07:31 03/19/20 07:31 Radiology Reviewed by me: Yes EKG Reviewed by me: Yes Hospitalist ROS - Review of Systems ROS unobtainable: due to mental status Neurological: reports: seizures - Medication Medications: Active Medications Generic Name Dose Route Start Last Admin Trade Name Freq PRN Reason Stop Dose Admin Acetaminophen 650 mg 03/16/20 19:05 03/18/20 20:21 Tylenol [place] 650 mg Q4H PRN Administration Headache/Fever/Mild Pain (1-3) Dexamethasone 4 mg 03/18/20 14:00 03/19/20 05:41 Decadron SLOW IVP 4 mg Q8HR DAFNE Administration Enoxaparin Sodium 40 mg 03/17/20 09:00 03/19/20 09:15 Lovenox SC 40 mg 0900 DAFNE Administration Famotidine 20 mg 03/16/20 21:00 03/19/20 09:15 Pepcid SLOW IVP 20 mg Q12HR DAFNE Administration Lactated Ringer's 1,000 mls @ 100 mls/hr 03/16/20 19:05 03/19/20 09:16 Lactated Ringer's IV 1,000 mls .Q10H DAFNE Administration Levetiracetam 1,000 mg/ Device 100 mls @ 200 mls/hr 03/18/20 09:00 03/19/20 09:15 IVPB 100 mls BID DAFNE Administration Acyclovir Sodium 600 mg/ 112 mls @ 100 mls/hr 03/19/20 08:00 03/19/20 09:14 Sodium Chloride IVPB 112 mls 0800,1600,2359 DAFNE Administration Sodium Chloride 10 ml 03/17/20 09:00 03/19/20 09:16 Flush - Normal Saline IVF 10 ml Q12HR DAFNE Administration - Exam General Appearance: ill appearing Eye: PERRL, anicteric sclera ENT: normocephalic atraumatic Neck: supple Heart: RRR Respiratory: CTAB Gastrointestinal: soft Extremities: no cyanosis, no clubbing, no edema Skin: normal turgor Neurological: no focal deficits Neurological - other findings: Minimal response to nail bed pressure, No gaze preference or roving eye mov Musculoskeletal: normal tone Musculoskeletal - other findings: Minimal response to nailbed pressure. Psychiatric: somnolent, lethargic Hosp A/P (1) Seizure Code(s): R56.9 - UNSPECIFIED CONVULSIONS Status: Acute (2) Fever Code(s): R50.9 - FEVER, UNSPECIFIED Status: Acute - Plan speech therapy, DVT proph w/SCDs 29 year old with witnessed seizure now with altered mental status. Concern about anoxic brain injury in the setting of prolonged seizure. Routine EEG from yesterday reviewed which was negative for seizure activity. MRI Brain reviewed which was consistent with PRES. LP results reviewed. Consider adding viral panel. Observe seizure precautions. Continue Keppra 1000 mg IV Q12. Ativan 2 mg IV for seizure greater than 2 minutes. Neurochecks every 4 hours. Will repeat prolonged EEG today to r/o subclinical seizures. Consider repeat HCT since patient continues to remain unresponsive Continue medical management per primary team. Plan discussed in detail with the primary hospitalist. We will continue to follow. Further recommendations depend on the results of the testing.
--- NOTE | 2020-03-19 13:11 | PDOC.HOSPP ---
- Subjective Encounter Date: 03/19/20 Encounter Time: 11:15 Subjective: pt still obtunded - Objective Vital Signs & Weight: Vital Signs (12 hours) Temp Pulse Ox 03/19/20 11:34 99.9 F H 03/19/20 07:45 98 03/19/20 07:00 98.2 F 03/19/20 03:00 98.7 F Weight Weight 156 lb 3 oz Most Recent Monitor Data Heart Rate from ECG 84 NIBP 123/101 NIBP BP-Mean 108 Respiration from ECG 15 SpO2 97 I&O: 03/18/20 03/19/20 03/20/20 06:59 06:59 06:59 Intake Total 2490 2390 Output Total 1170 2400 Balance 1320 -10 Result Diagrams: 03/19/20 07:31 03/19/20 07:31 Hospitalist ROS - Review of Systems Other: unable to obtain - Medication Medications: Active Medications Generic Name Dose Route Start Last Admin Trade Name Freq PRN Reason Stop Dose Admin Acetaminophen 650 mg 03/16/20 19:05 03/18/20 20:21 Tylenol [place] 650 mg Q4H PRN Administration Headache/Fever/Mild Pain (1-3) Dexamethasone 4 mg 03/18/20 14:00 03/19/20 05:41 Decadron SLOW IVP 4 mg Q8HR DAFNE Administration Enoxaparin Sodium 40 mg 03/17/20 09:00 03/19/20 09:15 Lovenox SC 40 mg 0900 DAFNE Administration Famotidine 20 mg 03/16/20 21:00 03/19/20 09:15 Pepcid SLOW IVP 20 mg Q12HR DAFNE Administration Lactated Ringer's 1,000 mls @ 100 mls/hr 03/16/20 19:05 03/19/20 09:16 Lactated Ringer's IV 1,000 mls .Q10H DAFNE Administration Levetiracetam 1,000 mg/ Device 100 mls @ 200 mls/hr 03/18/20 09:00 03/19/20 09:15 IVPB 100 mls BID DAFNE Administration Acyclovir Sodium 600 mg/ 112 mls @ 100 mls/hr 03/19/20 08:00 03/19/20 09:14 Sodium Chloride IVPB 112 mls 0800,1600,2359 DAFNE Administration Sodium Chloride 10 ml 03/17/20 09:00 03/19/20 09:16 Flush - Normal Saline IVF 10 ml Q12HR DAFNE Administration - Exam Respiratory: negative: CTAB, no wheezes, no rales, no ronchi, normal chest expansion, no tachypnea, normal percussion, rales, rhonchi, tachypneic, wheezes Gastrointestinal: negative: soft, non-tender, non-distended, normal bowel sounds , no palpable masses, no hepatomegaly, no splenomegaly, no bruit, no guarding, no rigidity, tender to palpation, distended, diminished bowl sounds, voluntary guarding Extremities: negative: no cyanosis, no clubbing, no edema, 1+ LE edema, 2+ LE edema, clubbing Neurological - other findings: pt unable to move any ext Hosp A/P (1) Seizure Code(s): R56.9 - UNSPECIFIED CONVULSIONS Status: Acute (2) Metabolic encephalopathy Code(s): G93.41 - METABOLIC ENCEPHALOPATHY Status: Acute - Plan per family she has been taking her antiseizure meds. she received Ativan and Valium per ems however she continued to have seizure so was given a total of 10mg of Valium in the ER and was given keppra iv. Her LP was normal so her abx will be discontinued. will get a abg. She could be post ictal vs sedated from all the medications she received from the ER. 03/18 PT is not awake, neuro called case discussed will get stat ct brain and eeg for subclinical seizure. may need MRI brain also. I called pt's family and updated them about what was going on. 03/19 pt still not waking up, eeg repeated. spoke with neurology. Not sure what is causing PRES. will continue acyclovir.
--- NOTE | 2020-03-19 16:25 | EEG ---
Referring Physician: Flaca BROWNE EEG # [id number] TEST TYPE: EXTENDED CONTINUOUS VIDEO EEG REPORT: This EEG was performed using 24 channel [employer] video digital EEG machine with 24 disc electrodes. This was an extended 2 hour 25 minutes of patient video EEG recording. Digital analysis of the EEG was done with spike and seizure detection which showed no abnormalities. BACKGROUND: The posterior background rhythm was not observed HYPERVENTILATION: Not performed. PHOTIC STIMULATION: Not performed. SLEEP: No stage change was observed. EEG DIAGNOSIS: 1.) Generalized low amplitude delta activity at times superimposed with EMG muscle artifact. 2.) No reactivity to stimulation. 3.) Absence of posterior background rhythm. CLINICAL INTERPRETATION: THIS EEG IS CONSISTENT WITH SEVERE GENERALIZED NONSPECIFIC CEREBRAL DYSFUNCTION. NO ICTAL OR INTERICTAL EPILEPTIFORM ABNORMALITIES SEEN DURING THE RECORDING. Care Advocate: VICENTA Regeneration Operator: EEG.ISIDRA HALE
[2020-03-20] MEDS: Acyclovir Sodium 600 MG in Sodium Chloride 0.9% 100 ML IVPB SCH ×3 (00:19→16:06)
[2020-03-20] MEDS ORDERED: Lorazepam 2 MG/ML VIAL ONE (04:05)
[2020-03-20 04:15] LABS: ALT (SGPT) 221 U/L (8-55); AST (SGOT) 506 U/L (5-34); Albumin 3.8 g/dL (3.5-5.0); Alkaline Phosphatase 94 U/L (40-110); Anion Gap 15 mmol/L (10-20); BUN (Urea Nitrogen) 10 mg/dL (7.0-18.7); Bilirubin, Total 0.7 mg/dL (0.2-1.2); Calc. Creatinine Clearance 129 mL/min (70-130); Calcium 9.2 mg/dL (7.8-10.44); Carbon Dioxide 20 mmol/L (22-29); Chloride 105 mmol/L (98-107); Estimated GFR-MDRD Greater than 90; Glucose 120 mg/dL (70-105); Potassium 3.9 mmol/L (3.5-5.1); Protein, Total 7.8 g/dL (6.0-8.3); Sodium 136 mmol/L (136-145)
[2020-03-20] MEDS ORDERED: Norepinephrine 8 MG/0.9% NS 250 ML IVPB PRN (04:16)
[2020-03-20] MEDS ORDERED: CCU Electrolyte Replacement 1 EACH IVPB SCH (04:16)
--- NOTE | 2020-03-20 04:16 | PDOC.EVN ---
Event Note - Event Note Event Note: Patient went into epileptiform activity while being turned around 4am, clenched all muscles and jaw and then rapidly desatted (reported by Sruthi RN), patient had code blue and pulse returned after CPR x 10 minutes or so and etomidate/ succinylcholine and patient intubated by trauma PA at bedside with no issues. Going for CT head currently, CXR ordered and sedation protocol with propofol, will order labs and reassess once CT performed.
[2020-03-20 04:20] LABS: Hemoglobin 13.8 g/dL (12.0-16.0); Lymphocytes 5 % (21-51); MDiff Complete? YES; Mean Corpuscular HGB CONC 33.6 g/dL (32.0-36.0); Mean Corpuscular Hemoglobin 30.9 pg (27.0-31.0); Mean Corpuscular Volume 91.9 fL (78.0-98.0); Mean Platelet Volume 7.2 fL (7.4-10.4); Monocytes 8 % (0-10); Neutrophil 87 % (42-75); Platelet Count 315 thou/uL (130-400); Platelet Morphology Comment Appears Adequate; RBC Distribution Width 12.3 % (11.5-14.5); Red Blood Cell (RBC) Count 4.48 mill/uL (4.20-5.40); White Blood Cell (WBC) Count 23.7 thou/uL (4.8-10.8)
[2020-03-20] MEDS ORDERED: Potassium Phosphate 15 MMOL in Sodium Chloride 0.9% 250 ML 250 ML IV PRN (04:26)
[2020-03-20] MEDS ORDERED: Magnesium 2 GM/50 ML 2 GM in Premix Bag 1 BAG IVPB PRN (04:26)
[2020-03-20] MEDS ORDERED: Fentanyl BOLUS 250 ML IVPB PRN (04:26)
[2020-03-20] MEDS ORDERED: CCU ELECTROLYTE REPLACEMENT PROTOCOL FS PRN (04:26)
[2020-03-20] MEDS ORDERED: PHOS-NAK 1 PKT PACK PO PRN ×2 (04:26)
[2020-03-20] MEDS ORDERED: Potassium Phosphate 12 MMOL in Sodium Chloride 0.9% 250 ML 250 ML IV PRN (04:26)
[2020-03-20] MEDS ORDERED: Propofol 1,000 MG/100 ML VIAL IV PRN (04:26)
[2020-03-20] MEDS ORDERED: Morphine 2 MG/ML SYRINGE SLOW IVP PRN (04:26)
[2020-03-20] MEDS ORDERED: Potassium Chloride 20 MEQ TAB PO PRN (04:26)
[2020-03-20] MEDS ORDERED: Potassium Chloride 40 MEQ in Sodium Chloride 0.9% 250 ML 250 ML IVPB PRN (04:26)
[2020-03-20] MEDS ORDERED: Potassium Phosphate 9 MMOL in Sodium Chloride 0.9% 100 ML IVPB PRN (04:26)
[2020-03-20] MEDS ORDERED: fentaNYL Citrate/PF 2,000 MCG in Sodium Chloride 0.9% 60 ML IV SCH (04:26)
[2020-03-20] MEDS ORDERED: Potassium Chloride 40 MEQ in Premix Bag 1 BAG IVPB PRN (04:26)
[2020-03-20] MEDS ORDERED: DISCONTINUE PREVIOUS NARCOTIC PAIN MEDICATIONS AND BENZODIAZEPINES FS SCH (04:26)
[2020-03-20] MEDS ORDERED: Propofol BOLUS 1,000 MG/100 ML VIAL IV PRN (04:26)
[2020-03-20] MEDS ORDERED: Magnesium Oxide 400 MG TAB PO PRN ×2 (04:26)
[2020-03-20] MEDS ORDERED: Ventilator Sedation Protocol 1 EACH FS SCH (04:30)
[2020-03-20] MEDS: Lorazepam 2 MG/ML VIAL SLOW IVP PRN ×2 (04:36→05:31)
[2020-03-20 04:41] LABS: Hemoglobin 14.4 g/dL (12.0-16.0); Lymphocytes 14 % (21-51); MDiff Complete? YES; Mean Corpuscular HGB CONC 32.7 g/dL (32.0-36.0); Mean Corpuscular Hemoglobin 30.3 pg (27.0-31.0); Mean Corpuscular Volume 92.7 fL (78.0-98.0); Mean Platelet Volume 7.3 fL (7.4-10.4); Monocytes 1 % (0-10); Neutrophil 85 % (42-75); Platelet Count 340 thou/uL (130-400); Platelet Morphology Comment Appears Adequate; RBC Distribution Width 12.1 % (11.5-14.5); Red Blood Cell (RBC) Count 4.75 mill/uL (4.20-5.40); White Blood Cell (WBC) Count 24.2 thou/uL (4.8-10.8)
[2020-03-20 04:43] LABS: Lactic Acid 3.1 mmol/L (0.5-2.2)
[2020-03-20 04:51] LABS: ALT (SGPT) 290 U/L (8-55); AST (SGOT) 603 U/L (5-34); Alkaline Phosphatase 102 U/L (40-110); Anion Gap 17 mmol/L (10-20); BUN (Urea Nitrogen) 10 mg/dL (7.0-18.7); Bilirubin, Total 0.7 mg/dL (0.2-1.2); Calc. Creatinine Clearance 116 mL/min (70-130); Calcium 8.8 mg/dL (7.8-10.44); Carbon Dioxide 20 mmol/L (22-29); Chloride 103 mmol/L (98-107); Estimated GFR-MDRD Greater than 90; Globulin 4.2 g/dL (2.4-3.5); Glucose 193 mg/dL (70-105); Potassium 3.5 mmol/L (3.5-5.1); Protein, Total 8.2 g/dL (6.0-8.3); Sodium 136 mmol/L (136-145)
[2020-03-20] MEDS: Dexamethasone 4 mg/ml Vial SLOW IVP SCH ×3 (05:35→22:00)
[2020-03-20] MEDS: Lactated Ringer's 1,000 ML IV SCH (05:35)
--- NOTE | 2020-03-20 07:14 | CT ---
PRELIMINARY REPORT/[facility]/EMERGENCY AFTER HOURS PROCEDURE: This report was discussed with Florinda Munoz RN by Gail Palafox on March 20, 2020 04:35:00 CDT . Addendum electronically signed by Gail Palafox on March 20, 2020 4:35:44 AM CDT PROCEDURE: CT Head without Contrast . HISTORY: Seizure. TECHNIQUE: Axial images were performed without the administration of IV contrast with or without mult iplanar reformations . COMPARISON: 03/18/2020. FINDINGS: Decreased bowles-white matter differentiation diffusely with effacement of sulci and basilar cisterns c onsistent with diffuse edema and anoxic event that has increased compared to previous study. No midline shift. No intracranial hemorrhage. No hydrocephalus. IMPRESSION: Findings suspicious for diffuse edema related to anoxic event. ELECTRONICALLY SIGNED BY: Wil Kirby MD March 20, 2020 4:29:33 AM CDT This report is intended for review by the ordering physician only, in accordance of law. If you recei ve this report in error, please call [facility] at [phone]. FINAL REPORT EMERGENCY AFTER HOURS CT BRAIN: FINDINGS/IMPRESSION: I agree with the findings and impression given in the preliminary report per [facility] physici an. Since the prior examination, there has been loss of bowles-white matter differentiation, suspicious for an anoxic injury. There is a questionable small amount of hyperdensity along the sylvian fissure s which could represent a small amount of subarachnoid hemorrhage. POS: EAA
[2020-03-20 07:25] LABS: Actual Bicarbonate (HCO3a) 22.2 mEq/L (22-28); Base Excess (BEa) 0.3 mEq/L (-2.0 to +3.0); CO2 Tension 28.1 mmHg (35.0-45.0); Calcium, Ionized 1.21 mmol/L (1.12-1.30); Carboxyhemoglobin (COHb) 0.4 gm% (0.0-3.0); Hemoglobin (Hb) 13.1 g/dL (12.0-16.0); O2 Tension (PaO2), arterial 86.7 mmHg (80.0-100.0); Potassium - ABG Lab 3.38 mmol/L (3.70-5.30); pH, Arterial 7.52 (7.35-7.45)
[2020-03-20 07:26] LABS: ALV-art Gradient 305.975 (0-20); Puncture Site RR
--- NOTE | 2020-03-20 07:53 | RAD ---
Exam: Chest one view HISTORY:Respiratory distress. Ventilated patient. Comparison: 03/16/2020 FINDINGS: Lines and tubes: Interval placement of endotracheal and nasogastric tube. Cardiac silhouette: Normal Aorta: Unremarkable Pulmonary vessels: Normal Costophrenic angles: Clear LUNGS: Stable aeration of the lung parenchyma. No definite consolidation. Pneumothorax: None Osseous abnormalities: None IMPRESSION: 1. Interval placement of endotracheal and nasogastric tube.
--- NOTE | 2020-03-20 07:54 | RAD ---
Chest one view HISTORY: Endotracheal catheter adjustment. Dyspnea. COMPARISON: 03/20/2020. FINDINGS: Cardiac silhouette and pulmonary vasculature are unremarkable. Mediastinum is midline. Tip of an endotracheal catheter is now at the level of the clavicular heads. Nasogastric tube descends to the abdomen. No other change. IMPRESSION : Slight retraction of the endotracheal catheter. Tip now at the level of the clavicular heads.
[2020-03-20] MEDS: Enoxaparin Sodium 40 MG/0.4 ML SYRINGE SC SCH (08:03)
[2020-03-20] MEDS: Famotidine/PF 20 mg/2ml Vial SLOW IVP SCH ×2 (08:03→21:25)
[2020-03-20] MEDS: levETIRAcetam In NaCl (Iso-Os) 1,000 MG in Premix Bag 1 BAG IVPB SCH ×2 (08:03→21:26)
[2020-03-20] MEDS ORDERED: EPINEPHrine 1 MG/10 ML Abboject SYRINGE ONE (08:57)
[2020-03-20] MEDS: Sodium Chloride 0.9% 1,000 ML IV SCH ×6 (10:54→21:25)
[2020-03-20] MEDS: cefTRIAXone\\ROCEPHIN 2 GM in Sodium Chloride 0.9% 100 ML IVPB SCH ×2 (10:55→21:26)
--- NOTE | 2020-03-20 11:39 | PDOC.PALCO ---
Palliative Care Consult - Consult Details Requesting Physician: Dr Willett Reason for Consult: advance directives assistance, family support - Pertinent HPI 29 year old female who was diagnosed with a seizure disorder 09/2018. She was found at home actively seizing and EMS was called. Given Ativan and Keppra in the emergency room and admitted to [facility] for further management. Sachin lam was called in the night of 03/20/2020 and required intubation and CPR. Neurologic decline. Fausto Espino states she has been compliant with her medications - Pertinent PMH Seizures, asthma - Social History Smoking Status: Never smoker Smoking: no tobacco exposure Alcohol Use: none Drug Use History: none Living Situation: independent - Medications MAR Reviewed: Yes - Allergies Allergies/Adverse Reactions: Allergies Allergy/AdvReac Type Severity Reaction Status Date / Time shellfish derived Allergy Verified 09/26/18 16:02 seafood Allergy Uncoded 09/26/18 16:02 - Subjective Intubated currently, non responsive. - ROS Non Response: due to endotracheal tube, due to mental status - Objective Vital Signs: Vital Signs - Most Recent Temp Pulse Resp BP Pulse Ox 98.5 F 115 H 10 L 87/68 L 99 03/20/20 05:00 03/20/20 10:30 03/20/20 10:00 03/20/20 10:30 03/20/20 08:00 Palliative Performance Scale: 20 - Advance Directives Medical Power of Wet Washer Machine: No paperwork identified, [place] law desiginated her mother and father - Physical Exam Constitutional: encephalitic HEENT: sclera anicteric Deviation from normal: Right pupil blown, non reactive to left Deviation from normal: Mechanical ventilation Cardiovascular: RRR Gastrointestinal: incontinent Genitourinary: baker catheter Musculoskeletal: no cyanosis, no clubbing Deviation from normal: non responsive to gentle stimuli Skin: no lesions, no rash Deviation from normal: non responsive - Problem List (1) Respiratory failure requiring intubation Code(s): J96.90 - RESPIRATORY FAILURE, UNSP, UNSP W HYPOXIA OR HYPERCAPNIA Current Visit: Yes Status: Acute (2) Palliative care encounter Code(s): Z51.5 - ENCOUNTER FOR PALLIATIVE CARE Current Visit: Yes Status: Acute (3) Metabolic encephalopathy Code(s): G93.41 - METABOLIC ENCEPHALOPATHY Current Visit: Yes Status: Acute (4) Seizure Code(s): R56.9 - UNSPECIFIED CONVULSIONS Current Visit: Yes Status: Acute - Plan/Recommendations Plan: Confusion in relation to surrogate decision maker for Ms Wade. She is not , and has claimed Fausto Espino in the past as her brother and surrogate decision maker however no Medical Power of Wet Washer Machine was ever completed. Ms Brower biological mother confirms she only has one biological sibling who is her sister. [facility] identified Bassam biological mother and father as surrogate decision makers. To have CT today, concerning of hypoxic brain injury and herniation. Family to come to see her, as well as Fausto. Yazmin ALMENDAREZ CCU attempting to coordinate a family phone call with Neurology and hospitalist. Palliative Care continues to be available for emotional support. [60] minutes spent on this encounter with >50% of the time in counseling and coordination of care. Thank you for this very appropriate consult.
--- NOTE | 2020-03-20 11:52 | CT ---
Exam: Head CT without contrast HISTORY: Encephalopathy hepatic patient. Seizure.: Pupils. COMPARISON: 03/20/2020, 03/18/2020 FINDINGS: Hemorrhage: No intraparenchymal hemorrhage or extra-axial hematoma. Brain parenchyma: Diffuse loss of cortical bowles-white matter differentiation, compatible with anoxic brain injury. Effacement of the basilar cisterns suggesting brain herniation secondary to edema Ventricular system: Slitlike ventricles, likely due to intracranial hypertension. Calvarium: Intact. Sinuses and mastoid air cells: Adequate aeration. IMPRESSION: 1. CT findings compatible with diffuse anoxic brain injury.
--- NOTE | 2020-03-20 11:54 | CON ---
DATE OF CONSULTATION: HISTORY OF PRESENT ILLNESS: Emily Wade is a 29-year-old unfortunate female, who has been in the hospital now since 03/16/2020. Initial presentation was seizure activity. She has been in the hospital since then with postictal state. She was seen by Neurology. They left on the Keppra. Additionally, they had started acyclovir. She was given Ativan and Valium. A lumbar puncture was done, which I am told was unremarkable. Coronavirus test was negative. Yesterday morning at 4 o'clock, she proceeded to have a respiratory arrest. She was intubated. PHYSICAL EXAMINATION: VITAL SIGNS: She is now in the ICU on the vent, pulse 101, blood pressure 96/76 , sats are 100%, and respirations 14. HEENT: Pupils are fixed and dilated. CHEST: Decreased breath sounds. No wheezing. CARDIAC: Normal S1 and S2. No gallops. ABDOMEN: No masses. LABORATORY DATA: White count is 24,000 H and H 14 and 43, platelet count is normal. PO2 is 86, pCO2 33 ph 7.53 rate of 16, 450 tidal volume. Lytes are normal. Liver function elevated, AST 603, ALT is 290. Chest x-ray was clear. She had an EEG done several days ago, which showed no seizure activity, but abnormal slowing. MRI showed decreased white matter differentiation, consistent with diffuse cerebral edema. IMPRESSION: 1. Severe anoxic injury. 2. Baseline seizure activity on a day of admission with encephalopathy persisted for several days. 3. Leukocytosis. I am concerned she has sustained significant anoxic injury, possibly brain . May consider doing a brain flow study tomorrow. Hold off sedation. Continue acyclovir. Empiric antibiotics. All cultures have been negative except protein was elevated. Encephalopathy secondary to postictal state, leukocytosis. PLAN: Brain scan tomorrow. Discuss with family once they arrived. Supportive care, PT. 45 minutes of critical care time. Job ID: [id number] MTDD
--- NOTE | 2020-03-20 12:11 | PDOC.HOSPP ---
- Subjective Encounter Date: 03/20/20 Subjective: Patient coded earlier around 4 pm and moved to ICU after intubation. The nursing staff noted dilated pupils about 7 mm non reactive to light. Repeat HCT showed signs of anoxic brain injury. - Objective Vital Signs & Weight: Vital Signs (12 hours) Temp Pulse Resp BP Pulse Ox 03/20/20 10:30 115 H 87/68 L 03/20/20 10:00 10 L 03/20/20 08:09 86 89/64 L 03/20/20 08:00 16 99 03/20/20 06:00 16 03/20/20 05:00 98.5 F 03/20/20 04:39 123 H 87/59 L 03/20/20 04:30 98 03/20/20 03:40 100.2 F H Weight Weight 151 lb 14.376 oz Most Recent Monitor Data Heart Rate from ECG 93 NIBP 88/62 NIBP BP-Mean 70 Respiration from ECG 15 SpO2 99 I&O: 03/19/20 03/20/20 03/21/20 06:59 06:59 06:59 Intake Total 2390 2151.2 546 Output Total 2400 3275 2480 [facility] -10 -1123.8 -1934 Result Diagrams: 03/20/20 04:06 03/20/20 04:06 Radiology Reviewed by me: Yes EKG Reviewed by me: Yes Hospitalist ROS - Review of Systems ROS unobtainable: due to mental status - Medication Medications: Active Medications Generic Name Dose Route Start Last Admin Trade Name Freq PRN Reason Stop Dose Admin Acetaminophen 650 mg 03/16/20 19:05 03/18/20 20:21 Tylenol [place] 650 mg Q4H PRN Administration Headache/Fever/Mild Pain (1-3) Dexamethasone 4 mg 03/18/20 14:00 03/20/20 05:35 Decadron SLOW IVP 4 mg Q8HR DAFNE Administration Enoxaparin Sodium 40 mg 03/17/20 09:00 03/20/20 08:03 Lovenox SC 40 mg 0900 DAFNE Administration Famotidine 20 mg 03/16/20 21:00 03/20/20 08:03 Pepcid SLOW IVP 20 mg Q12HR DAFNE Administration Levetiracetam 1,000 mg/ Device 100 mls @ 200 mls/hr 03/18/20 09:00 03/20/20 08:03 IVPB 100 mls BID DAFNE Administration Acyclovir Sodium 600 mg/ 112 mls @ 100 mls/hr 03/19/20 08:00 03/20/20 10:41 Sodium Chloride IVPB 112 mls 0800,1600,2359 DAFNE Administration Ceftriaxone Sodium 2 gm/ 100 mls @ 200 mls/hr 03/20/20 10:00 03/20/20 10:55 Sodium Chloride IVPB 100 mls 1000,2200 DAFNE Administration Sodium Chloride 1,000 mls @ 100 mls/hr 03/20/20 10:15 03/20/20 10:54 Normal Saline 0.9% IV 1,000 mls .Q10H DAFNE Administration Lorazepam 2 mg 03/20/20 04:26 03/20/20 05:31 Ativan SLOW IVP 04/19/20 04:26 2 mg Q1H PRN Administration Breakthrough agitation Propofol 1,000 mg 03/20/20 04:26 03/20/20 04:36 Diprivan IV 04/19/20 04:26 1,000 mg INF PRN Administration TO ACHIEVE GOAL RASS Protocol Sodium Chloride 10 ml 03/17/20 09:00 03/20/20 08:04 Flush - Normal Saline IVF 10 ml Q12HR DAFNE Administration - Exam General Appearance: ill appearing Eye - other findings: Pupils 7 mm non reactive to light. Gag neg Corneals minimally reactive ENT: normocephalic atraumatic, no oropharyngeal lesions, moist mucosa ENT - other findings: intubated Neck: supple Heart: RRR Respiratory: CTAB Gastrointestinal: soft Extremities: no cyanosis, no clubbing, no edema Skin: normal turgor Neurological: no new deficit Musculoskeletal - other findings: No withdrawal of all 4 extremities to nailbed pressure Psychiatric - other findings: unresponsive Hosp A/P (1) Anoxic brain injury Status: Acute (2) Seizure Code(s): R56.9 - UNSPECIFIED CONVULSIONS Status: Acute (3) Fever Code(s): R50.9 - FEVER, UNSPECIFIED Status: Acute - Plan Consults: Palliative Care 29 year old with witnessed seizure s/p cardiac arrest. Exam significant for dilated non reactive pupils, no withdrawal to noxious stimuli, absence of gag reflex HCT consistent with anoxic brain injury. Poor prognosis and chaces for meaningful recovery grave due to current findings. Recent HCT reviewed which was consistent with anoxic brain injury. Prolonged EEG from yesterday reviewed which was negative for seizure activity. MRI Brain reviewed was consistent with PRES. Continue Keppra and seizure precautions. Continue medical management per primary team. Palliative team consult. Family meeting to discuss prognosis.
[2020-03-20] MEDS ORDERED: Albumin 25% 25 GM/100 ML BOT IVPB SCH (12:21)
[2020-03-20] MEDS ORDERED: Norepinephrine 8 MG/0.9% NS 250 ML IVPB SCH ×2 (12:30)
[2020-03-20] MEDS ORDERED: Sodium Chloride 0.9% 10 ML ONE (12:34)
[2020-03-20] MEDS ORDERED: Sodium Chloride 0.9% 15 ML NEB ONE (12:35)
--- NOTE | 2020-03-20 12:57 | RAD ---
Chest one view HISTORY: Central line placement. COMPARISON: 03/20/2020. FINDINGS: Cardiac silhouette and pulmonary vasculature are unremarkable. Mediastinum is midline. Tip of a new left subclavian central venous catheter projects over the cavoatrial junction. No evidence of pneumothorax. Nasogastric tube and endotracheal catheter remain in place. IMPRESSION : Left subclavian central venous catheter is in good radiographic position.
[2020-03-20] MEDS: Piperacillin/Tazobactam 3.375 GM in Sodium Chloride 0.9% 100 ML IVPB SCH ×2 (13:49→18:18)
[2020-03-20 13:59] VITALS: BMI 23.8
[2020-03-20 14:52] LABS: Bilirubin Negative (Negative); Blood, Urine 2+ (Negative); Clarity Clear (Clear); Glucose, Urine (Dipstick) Normal (Negative); Leukocyte Negative Leu/uL (Negative); Nitrite Negative (Negative); Protein, Urine (Dipstick) Negative (Neg-Trace); RBC/HPF 0-3 HPF (0-3); Squamous Epithelial None Seen HPF (0-3); Urobilinogen Normal mg/dL (Less than 2); WBC/HPF 0-3 HPF (0-3)
[2020-03-20 14:59] LABS: Bacteria/HPF Rare-Few HPF (None Seen)
[2020-03-20 15:15] LABS: Anion Gap 12 mmol/L (10-20); BUN (Urea Nitrogen) 12 mg/dL (7.0-18.7); Calc. Creatinine Clearance 120 mL/min (70-130); Calcium 9.3 mg/dL (7.8-10.44); Carbon Dioxide 23 mmol/L (22-29); Chloride 130 mmol/L (98-107); Estimated GFR-MDRD Greater than 90; Glucose 124 mg/dL (70-105); Potassium 4.1 mmol/L (3.5-5.1); Sodium 161 mmol/L (136-145)
[2020-03-20] MEDS ORDERED: Sodium Chloride 0.9% 1,000 ML IV SCH (15:45)
[2020-03-20 15:54] LABS: ANA Symphony (Qualitative) Negative (Negative); ANA Symphony (Quantitative) 0.3 Ratio (< 0.7 Negative); dsDNA IgG Antibody 2.6 IU/mL (<10 Negative)
[2020-03-20] MEDS: Vasopressin 40 UNIT, Admixture Fee 1 EACH in Sodium Chloride 0.9% 100 ML IV SCH (16:18)
--- NOTE | 2020-03-20 19:41 | OP ---
DATE OF PROCEDURE: 03/20/2020 PREOPERATIVE DIAGNOSES: 1. Acute hypotension. 2. Acute anoxic brain injury. POSTOPERATIVE DIAGNOSES: 1. Acute hypotension. 2. Acute anoxic brain injury. PROCEDURE PERFORMED: Placement of triple-lumen left subclavian central venous catheter. INDICATIONS FOR PROCEDURE: A 29-year-old woman admitted following recent epileptic seizure disorder and subsequent anoxic brain injury. She is hypotensive, requiring fluid resuscitation. I was asked to place a central venous catheter to facilitate therapeutics. DESCRIPTION OF PROCEDURE: Informed consent was obtained from the patient's father by telephone, following which the patient was placed in supine position. Left chest wall was sterilely prepped and draped in the usual fashion. The skin below the left clavicle was anesthetized with 1% lidocaine. Left subclavian vein was cannulated with an 18-gauge introducer needle, returning dark venous blood. Guidewire was passed through the needle and advanced into the left subclavian vein without resistance. Needle was withdrawn over the guidewire. A stab incision was made adjacent to the guidewire using an 11 scalpel. Dilator was passed over the guidewire, dilating the subcutaneous tissues. Dilator was removed and a triple-lumen central venous catheter was advanced over the guidewire and placed in the left subclavian vein without resistance, stopping at the 18-cm dann. Guidewire was removed. Dark venous blood was aspirated from all 3 ports, which were individually flushed with saline. Catheter was secured to the anterior chest wall using 3-0 silk suture at two points. Sterile dressings were applied. The patient tolerated the procedure without any apparent complications. Chest x-ray confirmed proper placement and no pneumothorax present. Job ID: [id number]
[2020-03-20 20:40] LABS: Anion Gap 12 mmol/L (10-20); BUN (Urea Nitrogen) 10 mg/dL (7.0-18.7); Calc. Creatinine Clearance 135 mL/min (70-130); Carbon Dioxide 19 mmol/L (22-29); Chloride 134 mmol/L (98-107); Estimated GFR-MDRD Greater than 90; Glucose 154 mg/dL (70-105); Potassium 3.5 mmol/L (3.5-5.1); Sodium 161 mmol/L (136-145)
[2020-03-21] MEDS: Acyclovir Sodium 600 MG in Sodium Chloride 0.9% 100 ML IVPB SCH ×2 (00:24→08:24)
[2020-03-21] MEDS: Piperacillin/Tazobactam 3.375 GM in Sodium Chloride 0.9% 100 ML IVPB SCH ×3 (01:17→14:14)
[2020-03-21 04:28] LABS: Anion Gap 13 mmol/L (10-20); BUN (Urea Nitrogen) 10 mg/dL (7.0-18.7); Calc. Creatinine Clearance 128 mL/min (70-130); Carbon Dioxide 21 mmol/L (22-29); Estimated GFR-MDRD Greater than 90; Glucose 136 mg/dL (70-105); Sodium 159 mmol/L (136-145)
[2020-03-21 04:41] LABS: Chloride 128 mmol/L (98-107)
--- NOTE | 2020-03-21 04:42 | PDOC.HOSPP ---
- Subjective Encounter Date: 03/20/20 Encounter Time: 09:00 Subjective: pt intubated, went into resp failure last night - Objective Vital Signs & Weight: Vital Signs (12 hours) Temp Pulse Resp BP Pulse Ox 03/21/20 04:16 100 03/21/20 04:00 99.9 F H 21 H 03/21/20 02:23 97 137/97 H 03/21/20 02:00 21 H 03/21/20 00:00 94.5 F L 25 H 03/20/20 22:10 86 128/95 H 03/20/20 22:00 21 H 03/20/20 20:00 22 H 100 03/20/20 19:00 97.6 F 03/20/20 18:32 86 141/111 H 03/20/20 18:00 97.7 F 17 Weight Admit Weight 156 lb 4.924 oz Weight 148 lb 12.992 oz Most Recent Monitor Data Heart Rate from ECG 99 NIBP 129/89 NIBP BP-Mean 102 Respiration from ECG 22 SpO2 100 I&O: 03/19/20 03/20/20 03/21/20 06:59 06:59 06:59 Intake Total 2390 2151.2 59711 Output Total 2400 3275 13176 Balance -10 -1123.8 -363 Result Diagrams: 03/20/20 04:06 03/21/20 03:30 Hospitalist ROS - Review of Systems Other: uanble to obtain - Medication Medications: Active Medications Generic Name Dose Route Start Last Admin Trade Name Freq PRN Reason Stop Dose Admin Acetaminophen 650 mg 03/16/20 19:05 03/18/20 20:21 Tylenol AL 650 mg Q4H PRN Administration Headache/Fever/Mild Pain (1-3) Dexamethasone 4 mg 03/18/20 14:00 03/20/20 22:00 Decadron SLOW IVP 4 mg Q8HR DAFNE Administration Enoxaparin Sodium 40 mg 03/17/20 09:00 03/20/20 08:03 Lovenox SC 40 mg 0900 DAFNE Administration Famotidine 20 mg 03/16/20 21:00 03/20/20 21:25 Pepcid SLOW IVP 20 mg Q12HR DAFNE Administration Levetiracetam 1,000 mg/ Device 100 mls @ 200 mls/hr 03/18/20 09:00 03/20/20 21:26 IVPB 100 mls BID DAFNE Administration Acyclovir Sodium 600 mg/ 112 mls @ 100 mls/hr 03/19/20 08:00 03/21/20 00:24 Sodium Chloride IVPB 112 mls 0800,1600,2359 DAFNE Administration Ceftriaxone Sodium 2 gm/ 100 mls @ 200 mls/hr 03/20/20 10:00 03/20/20 21:26 Sodium Chloride IVPB 100 mls 1000,2200 DAFNE Administration Sodium Chloride 1,000 mls @ 100 mls/hr 03/20/20 10:15 03/20/20 21:25 Normal Saline 0.9% IV 1,000 mls .Q10H DAFNE Administration Piperacillin Sod/Tazobactam 100 mls @ 200 mls/hr 03/20/20 13:00 03/21/20 01: 17 Sod 3.375 gm/ Sodium Chloride IVPB 100 mls 0100,0700,1300,1900 DAFNE Administration Vasopressin 40 unit/ 102 mls @ 6 mls/hr 03/20/20 15:15 03/20/20 16:18 Miscellaneous Medication 1 IV 102 mls each/ Sodium Chloride INF DAFNE Administration Sodium Chloride 1,000 mls @ 0 mls/hr 03/20/20 15:30 03/20/20 20:13 Normal Saline 0.9% IV 550 mls .Q0M DAFNE Administration As Directed Lorazepam 2 mg 03/20/20 04:26 03/20/20 05:31 Ativan SLOW IVP 04/19/20 04:26 2 mg Q1H PRN Administration Breakthrough agitation Propofol 1,000 mg 03/20/20 04:26 03/20/20 04:36 Diprivan IV 04/19/20 04:26 1,000 mg INF PRN Administration TO ACHIEVE GOAL RASS Protocol Sodium Chloride 10 ml 03/17/20 09:00 03/20/20 21:26 Flush - Normal Saline IVF 10 ml Q12HR DAFNE Administration - Exam Neck: negative: supple, symmetric, no JVD, no thyromegaly, no lymphadenopathy, no carotid bruit, JVD Heart: negative: RRR, no murmur, no gallops, no rubs, normal peripheral pulses, irregular, diminshed peripheral pulses, murmur present, II/IV, III/IV Respiratory: negative: CTAB, no wheezes, no rales, no ronchi, normal chest expansion, no tachypnea, normal percussion, rales, rhonchi, tachypneic, wheezes Gastrointestinal: negative: soft, non-tender, non-distended, normal bowel sounds , no palpable masses, no hepatomegaly, no splenomegaly, no bruit, no guarding, no rigidity, tender to palpation, distended, diminished bowl sounds, voluntary guarding Neurological - other findings: pt not responsive Hosp A/P (1) Seizure Code(s): R56.9 - UNSPECIFIED CONVULSIONS Status: Acute (2) Metabolic encephalopathy Code(s): G93.41 - METABOLIC ENCEPHALOPATHY Status: Acute (3) Anoxic brain injury Status: Acute (4) Fever Code(s): R50.9 - FEVER, UNSPECIFIED Status: Acute (5) Respiratory failure requiring intubation Code(s): J96.90 - RESPIRATORY FAILURE, UNSP, UNSP W HYPOXIA OR HYPERCAPNIA Status: Acute (6) Primary central diabetes insipidus Status: Acute - Plan per family she has been taking her antiseizure meds. she received Ativan and Valium per ems however she continued to have seizure so was given a total of 10mg of Valium in the ER and was given keppra iv. Her LP was normal so her abx will be discontinued. will get a abg. She could be post ictal vs sedated from all the medications she received from the ER. 03/18 PT is not awake, neuro called case discussed will get stat ct brain and eeg for subclinical seizure. may need MRI brain also. I called pt's family and updated them about what was going on. 03/19 pt still not waking up, eeg repeated. spoke with neurology. Not sure what is causing PRES. will continue acyclovir. 03/20 will start pt on abx, her overall prognosis does not appear well. will talk with family and update them. Appears that the person listed on her emergency contact is not the brother but a friend who did not notify her parents. pt started to have large output, will recheck labs most likely to have DI. if so will need to give pt desmopressin or vasopressin. will continue to given her iv fluids. She also dropped her bp surgery called for central line placement and will start her on levophed.
--- NOTE | 2020-03-21 04:51 | PDOC.EVN ---
Event Note - Event Note Event Note: Called brother Fausto who is listed on the emergency contact who stated that he normally calls the patient a few times a day and if she does not pickle solution maker he will go over to check on her. He also states that she has been taking her keppra (per nursing staff she has not filled her rx since january 2020). However he states that she has another rx and has been taking that. Apparently per Fausto , he called her on Thursday and she did not pickle solution maker so he went over her place. He told me that she was in bed face down and what appears to him had a seizure. she had soiled herself. Per Fausto her eyes were open but was not communication. He thought she was postictal. He picked her up and put her on the couch and when to clean up when she had another seizure ( started to shake). This time he called EMS.
--- NOTE | 2020-03-21 04:55 | PDOC.EVN ---
Event Note - Event Note Event Note: 1800 spoke with pt's mother and father in details about pt's hospital event. I also updated her parents that Fausto was listed as her emergency certified personal chef who apparently never notified the parents. Mother was upset that she was not called earlier. She also expressed some concerns in regards to Fausto. She stated that he is not a blood relative but a friend and according to pt's mom/dad pt has changed since she started to hang out with Fausto. I also spoke to them about organ donation and both parents agreed on it.
[2020-03-21] MEDS: Dexamethasone 4 mg/ml Vial SLOW IVP SCH ×2 (06:20→14:14)
--- NOTE | 2020-03-21 07:03 | CON ---
DATE OF CONSULTATION: 03/20/2020 HISTORY OF PRESENT ILLNESS: Ms. Wade is a 29-year-old black female, who was admitted for refractory seizure activity. She was seen by Neurology, who made further recommendation keeping on the Keppra. In addition, a lumbar tap was done. She was also given empiric acyclovir. Subsequent results of the lumbar tap were essentially negative. Coronavirus testing was done, which was also negative. We are being consulted for her acute hypernatremia. This was concomitant with decreased urine output - polyuria. The urine was noted to be very dilute. The suspicion is that this is central diabetes insipidus. She has been started on vasopressin IV drip. Please note, normal saline was given due to the concomitant low blood pressure. A CT scan of the brain was repeated today and showed anoxic encephalopathy. REVIEW OF SYSTEMS: Not obtainable since the patient is unresponsive. MEDICATIONS: Currently on; 1. Vasopressin drip. 2. Acyclovir 600 mg IV q.8 hours. 3. Ceftriaxone 2 g IV daily. 4. Decadron 4 mg IV q.8 hours. 5. Pepcid 20 mg IV daily. 6. Hydralazine 10 mg IV q.4h p.r.n. 7. Levetiracetam 1000 mg IV b.i.d. 8. Ativan 2 mg IV p.r.n. 9. Magnesium oxide p.r.n. 10. Levophed drip. 11. Normal saline at 200 mL an hour. PAST MEDICAL HISTORY: 1. The patient has a history of seizure disorder. 2. History of asthma. PAST SURGICAL HISTORY: No significant surgeries. SOCIAL HISTORY: The patient has a live-in partner. She is a nonsmoker and takes no alcohol. She works in the [employer]. Education, high school. No IV drug abuse. FAMILY HISTORY: Unremarkable. ALLERGIES: NONE. TRAUMA: None. IMMUNIZATION: Unknown. HOSPITALIZATIONS: Please see past medical history. FAMILY HISTORY: No family history of ESRD. PHYSICAL EXAMINATION: VITAL SIGNS: Blood pressure 97/59, heart rate 91, and O2 saturation 100%. GENERAL: The patient is unresponsive, not in distress, comfortable, intubated on ventilator support. SKIN: Adequate turgor. HEENT: Pinkish conjunctivae. Anicteric sclerae. NECK: No neck mass. No carotid bruits. No JVD. CHEST: No deformities. LUNGS: Decreased breath sounds. HEART: Normal sinus rhythm. No murmur. No gallops. No rubs. ABDOMEN: Globular, soft, nontender. No masses. EXTREMITIES: No edema. No deformities. NEUROLOGICAL: The patient is unresponsive. Dilated pupils. LABORATORY DATA: Laboratories on 03/20/2020; white count 24.2, hemoglobin 14.4. Urinalysis on 03/20/2020, specific gravity is 1.002. No red cells. No white cells. Urine osmolality is 72. Urine sodium is 25. On 03/20/2020 at 1423 hours, sodium 161. On 03/20/2020 at 0406 hours, sodium 136, potassium 3.5, chloride 103, carbon dioxide 20, BUN 10, creatinine 0.8. AST 603, ALT 290. ASSESSMENT AND PLAN: Hypernatremia/polyuria - consider the possibility of acute central diabetes insipidus. Agree with IV vasopressin. Of interest, this patient is most likely brain . CT scan showed severe anoxic encephalopathy. Consideration for complete withdrawal of care is being made at the present time. For the moment, I agree with current management. Continue IV vasopressin and normal saline to maintain blood pressure. Due to her poor prognosis and possible withdrawal of treatment, we will be signing off. Please call if needed. Job ID: [id number]
[2020-03-21] MEDS: Vasopressin 40 UNIT, Admixture Fee 1 EACH in Sodium Chloride 0.9% 100 ML IV SCH (07:26)
[2020-03-21] MEDS: Famotidine/PF 20 mg/2ml Vial SLOW IVP SCH (08:26)
[2020-03-21] MEDS: Enoxaparin Sodium 40 MG/0.4 ML SYRINGE SC SCH (08:27)
--- NOTE | 2020-03-21 08:42 | PRG ---
DATE OF SERVICE: 03/21/2020 SUBJECTIVE: This morning, she remains intubated on the vent. OBJECTIVE: VITAL SIGNS: To my surprise, respiratory rate is 25. This morning, blood pressure 144/86. She is on vasopressin. Temperature is 97. I's and O's have been 12,469 in and 11,370 out. CHEST: No wheezing. No crackles. CARDIAC: Normal S1 and S2. ABDOMEN: Soft. LABORATORY DATA: Sodium 159, chloride 128. Lytes are normal. Cultures negative. Chest x-ray was normal. IMPRESSION AND PLAN: 1. Diabetes insipidus secondary to severe anoxic injury. 2. Electrolyte imbalance. 3. Respiratory failure. We had a very lengthy discussion with the mother yesterday. The patient was not assist in the vent. Pupils are dilated. We felt she might have sustained significant damage with probably brain . Surprisingly this morning, she was assisted with the vent, so clearly she is not brain . We are going to try and increase IV fluids to 2 L half-normal saline. We are going to continue vasopressin. Brain scan has been ordered, await results. Further discussions with the family once the scan is obtained. Overall prognosis remains grave. One-half hour of critical care time. Job ID: [id number]
[2020-03-21] MEDS: Sodium Chloride 0.45% 1,000 ML IV SCH ×2 (08:49→15:37)
[2020-03-21] MEDS: levETIRAcetam In NaCl (Iso-Os) 1,000 MG in Premix Bag 1 BAG IVPB SCH (09:31)
[2020-03-21] MEDS: cefTRIAXone\\ROCEPHIN 2 GM in Sodium Chloride 0.9% 100 ML IVPB SCH (10:09)
--- NOTE | 2020-03-21 10:49 | PDOC.PALPN ---
Palliative Progress Note - Subjective Mechanically ventilated, non responsive. - Objective Vital Signs: Vital Signs - Most Recent Temp Pulse Resp BP Pulse Ox 97.8 F 80 12 143/106 H 100 03/21/20 07:00 03/21/20 10:41 03/21/20 10:00 03/21/20 10:41 03/21/20 07:50 - Physical Exam Constitutional: ill appearing HEENT: moist MMs, sclera anicteric Deviation from normal: non reactive pupil, dilated Deviation from normal: mechanical ventilatoin Cardiovascular: RRR Gastrointestinal: incontinent Genitourinary: baker catheter Deviation from normal: non responsive to stimuli Skin: cap refill <2 seconds, no lesions - Assessment (1) Respiratory failure requiring intubation Code(s): J96.90 - RESPIRATORY FAILURE, UNSP, UNSP W HYPOXIA OR HYPERCAPNIA Current Visit: Yes Status: Acute (2) Palliative care encounter Code(s): Z51.5 - ENCOUNTER FOR PALLIATIVE CARE Current Visit: Yes Status: Acute (3) Metabolic encephalopathy Code(s): G93.41 - METABOLIC ENCEPHALOPATHY Current Visit: Yes Status: Acute (4) Seizure Code(s): R56.9 - UNSPECIFIED CONVULSIONS Current Visit: Yes Status: Acute - Plan Plan: Communicated with RN. Ms Wade to have brain scan this morning, evaluate for brain activity. Mariana Blandon RNtest borer helper available to family for support, Spiritual Care on board as well. Will assist family with goal of care as needed. Dr Willett introduced concept of organ donation, STA available as needed to provide information and support family if needed. Will continue to communicate with Dr Willett, Dr Gatica, and Dr Rich to support family and patient. [30] minutes spent on this encounter with >50% of the time in counseling and coordination of care. - ROS Non Response: due to endotracheal tube, due to mental status
--- NOTE | 2020-03-21 12:18 | PRG ---
DATE OF SERVICE: 03/21/2020 A 29-year-old female, who underwent a nuclear brain perfusion scan. Radiologist notified as that there was no perfusion and she was brain . We are in the process of trying to contact family members to see whether they would like to harvest her organ. palliative care is helping arrange that. We will talk to the family when they arrive at the bedside. Job ID: [id number] MTDD
--- NOTE | 2020-03-21 12:23 | NM ---
NUCLEAR MEDICINE CEREBRAL BLOOD FLOW STUDY: Date: 03/21/2020 HISTORY: 29-year-old female with anoxic brain injury. TECHNIQUE: 31.2 mCi technetium-99m Ceretec (HMPAO) injected IV. Dynamic anterior flow scintigraphy. Three static views of head. FINDINGS: There is lack of blood flow to the brain on the dynamic flow images. Positive hot nose sign. Static i mages demonstrate no radiopharmaceutical uptake in the brain. IMPRESSION: Brain confirmed. POS: JIN
[2020-03-21 12:37] LABS: West Nile Virus IgG Ab - CSF Negative (Negative); West Nile Virus IgM Ab - CSF Negative (Negative)
[2020-03-21 14:39] VITALS: BP 133/91
--- NOTE | 2020-03-21 14:53 | EEG ---
Referring Physician: Jarad MONAE EEG # [id number] TEST TYPE: URGENT PORTABLE INPATIENT REPORT: AN EEG USING THE INTERNATIONAL TEN-TWENTY SYSTEM OF ELECTRODE PLACEMENT WAS PERFORMED. The background activity consists of a low amplitude 3-4 hertz delta frequency over both hemispheres. There is some EKG artifact intermixed with this. Photic stimulation was unremarkable. No epileptiform features were seen. IMPRESSION: THIS IS AN ABNORMAL STUDY FOR THE FINDINGS OF DIFFUSE SLOWING AND SUPPRESSION CONSISTENT WITH A DIFFUSE ENCEPHALOPATHIC PROCESS. Music Promoter: VICENTA Mophead Trimmer And Wrapper: [email or web address] HALE
[2020-03-21 15:09] VITALS: TEMP 98
--- NOTE | 2020-03-22 10:48 | DIS ---
DATE OF ADMISSION: 03/16/2020 DATE OF DISCHARGE: 03/21/2020 DISCHARGE DIAGNOSES: 1. Seizure/epilepsy. 2. Anoxic brain injury. 3. Central diabetes insipidus. 4. Acute respiratory failure with hypoxia. 5. Cardiac arrest. HOSPITAL COURSE: The patient was a 29-year-old female with history of seizures, who initially came into the hospital with seizure and epilepsy. She apparently had seizures at home and was brought in and was given a large amount of medications by EMS and also was given about 10 mg of Valium in the ER for seizure and epilepsy. At this time, she was initially admitted into the ICU and it appeared that her seizures had stopped. 24 hours later, the patient did not wake up, and at this time, a stat EEG indicated no subclinical seizure, but just slowing of the brain form. MRI also was done with and without contrast, which indicated PRES, which was unclear etiology of PRES, which is posterior reversible encephalopathy syndrome. At this time, the patient continued to deteriorate. Overnight she had respiratory arrest and coded and was intubated. She had a round of CPR and was intubated. She did have a brain flow nuclear scan done, which indicated there was lack of flow to the brain, and at this time, family was notified even prior to that. The patient spoke with the family about organ donation, which they agreed. The patient was transferred to [place] for harvesting of her organs. Job ID: [id number]
--- NOTE | 2020-03-24 00:41 | PQF ---
Emily Wade KARISHMA [id number] CLINICAL DOCUMENTATION CLARIFICATION FORM: POST DISCHARGE Addendum to original discharge summary date: ____ Late entry note date: __ DATE: 03/24/2020 ATTN: STEPHANIE SHERMAN Please exercise your independent, professional judgment in responding to the clarification form. Clinical indicators are provided on the bottom of this form for your review Please check appropriate box(s): [ x ] Cerebral edema / Vasogenic edema [ ] Compression of brain Due to: [ ] Intracranial tumor [ ] Intracranial hematoma [ ] Acute cerebral infarction [ ] Traumatic brain injury [ ] Obstructive hydrocephalus [ x ] Other diagnosis anoxic brain injury [ ] Unable to determine For continuity of documentation, please document condition throughout progress notes and discharge summary. Thank You. CLINICAL INDICATORS - SIGNS / SYMPTOMS / LABS - Effacement of the basilar cisterns suggesting brain herniation secondary to edema- Brain CT, 03/20, Gonzalez Roth MD - Ventricular system: slitlike ventricles, likely due to intracranial hypertension- Brain CT, 03/20, Gonzalez Roth MD - Seizure/epilepsy-, 03/21, STEPHANIE SHERMAN RISK FACTORS - Anoxic brain injury- DS, 03/21, STEPHANIE SHERMAN - Posterior reversible encephalopathy syndrome-DS, 03/21, STEPHANIE SHERMAN TREATMENTS: -Decadron.IV-JAN, 03/18 (This form is maintained as a part of the permanent medical record) 2014 [employer]. All Rights Reserved Omar [email or web address]
--- NOTE | 2020-03-27 15:05 | OP ---
DATE OF PROCEDURE: 03/21/2020 A 29-year-old female, frankly brain . PROCEDURE PERFORMED: Bronchoscopy performed with lavage for purposes of harvesting the lungs. DESCRIPTION OF PROCEDURE: The flexible Olympus bronchoscope was passed via the endotracheal tube using the adapter. Willow and trachea were normal. Entering the left mainstem bronchus, there was relatively clear mucoid secretions which were easy to suction. This area was lavaged with normal saline total of about 20 mL. Thereafter, the upper right, bilateral middle lobe and lower lobe visualized to the subsegmental level without any endobronchial disease or blood or pus. The area was lavaged with additional 20 mL of saline. The trap was changed and bronchoscope was removed. Bronchoscope was repassed again, and this time the right lung was re-lavaged with normal saline total of 40 mL for the purposes of testing for the coronavirus. The patient overall tolerated procedure. Bronchoscope was removed, a third trap was placed in at this time to visualize the left lung. Once again, the flexible bronchoscope was passed using an adapter. Left lung was inspected and this was completely normal. Left upper and left lower lobe, no endobronchial obstruction, no blood or pus was seen. Mucosa was clear. The area was lavaged with normal saline 40 mL. The patient tolerated the procedure well. The washings will be sent for Gram stain, C and S as per the protocol for the transplant as well as for the coronavirus serology. The patient is left on 100% FiO2. The transplant coordinating team will take care of the patient from now on. Job ID: [id number]
--- NOTE | 2020-03-29 15:47 | EKG ---
Test Reason : Blood Pressure : / mmHG Vent. Rate : 107 BPM Atrial Rate : 107 BPM P-R Int : 154 ms QRS Dur : 074 ms QT Int : 326 ms P-R-T Axes : 069 071 040 degrees QTc Int : 435 ms Sinus tachycardia Possible Left atrial enlargement Borderline ECG Confirmed by SHANNAN MUSE DO ([id number]), newspaper copy editor ASHTYN DOWNING ([id number]) on 03/29/2020 3:47:30 PM Referred By: Confirmed By:SHANNAN MUSE DO
== END 2020-03-21 15:00 | disposition short-term general hospital (02) | DRG 100 ==
LOC: ERS 12:54 → CCU 15:52 → IMCU/EMU 03-17 14:33 → CCU 03-20 04:11
PROVIDERS: ADMIT Internal Medicine; ATTEND Internal Medicine
PROC: 02HV33Z Insertion of Infusion Device into Superior Vena Cava, Percutaneous Approach (ICD-10-PCS; principal; 2020-03-16)
PROC: 3E043XZ Introduction of Vasopressor into Central Vein, Percutaneous Approach (ICD-10-PCS; 2020-03-16)
PROC: 8E0ZXY6 Isolation (ICD-10-PCS; 2020-03-16)
PROC: 0BH17EZ Insertion of Endotracheal Airway into Trachea, Via Natural or Artificial Opening (ICD-10-PCS; 2020-03-16)
PROC: 5A1935Z Respiratory Ventilation, Less than 24 Consecutive Hours (ICD-10-PCS; 2020-03-16)
DX: G40.909 Epilepsy, unspecified, not intractable, without status epilepticus (principal); I67.83 Posterior reversible encephalopathy syndrome; J96.01 Acute respiratory failure with hypoxia; I46.9 Cardiac arrest, cause unspecified; G93.6 Cerebral edema; G93.1 Anoxic brain damage, not elsewhere classified; E87.0 Hyperosmolality and hypernatremia; Z51.5 Encounter for palliative care; I95.9 Hypotension, unspecified; J45.909 Unspecified asthma, uncomplicated; Z88.2 Allergy status to sulfonamides; Z91.013 Allergy to seafood; Z20.828 Contact with and (suspected) exposure to other viral communicable diseases
CPT/HCPCS: 36415; 36416; 51702; 62270; 70450; 70553; 71045; 76705; 78610; 80048; 80053; 80306; 81001; 81003; 81015; 81025; 82140; 82805; 82945; 83605; 83735; 83935; 84146; 84157; 84300; 85025; 86038; 86225; 86788; 86789; 87040; 87070; 87086; 87205; 87255; 87635; 89051; 93005; 94002; 94003; 94760; 95816; 95819; 96361; 96365; 96375; A4218; A4353; A9521; J0133; J0171; J0696; J1100; J1650; J1953; J2060; J2543; J2704; J3360; J3370; J3480; J3490; J7030; J7050; P9047; Q2009; S0028; U0003

== ENCOUNTER 2020-03-21 15:02 | Day surgery (SDC) | payer OTHER ==
[2020-03-21] MEDS ORDERED: methylPREDNISolone Sod Succ 2 GM in Sodium Chloride 0.9% 100 ML IVPB SCH (17:00)
[2020-03-21] MEDS ORDERED: Albuterol Sulfate 2.5 mg/3 ml Neb NEB PRN (17:00)
--- NOTE | 2020-03-21 17:16 | RAD ---
AP CHEST: 03/21/20 HISTORY: Shortness of breath. CCU follow-up. On respirator. COMPARISON: 03/20/20 at 12:20 p.m. FINDINGS: Increasing infiltrate in the right mid and lower lung when compared to yesterday's study. I cannot ex clude developing infiltrate in the left lung base. The left hemidiaphragm is poorly delineated. ET tube appears adequately positioned. A central line is adequately positioned. IMPRESSION: Increasing infiltrates especially prominent in the right mid and lower lung when compared to yesterda y. POS: AGW
[2020-03-21] MEDS: Piperacillin/Tazobactam 3.375 GM in Sodium Chloride 0.9% 100 ML IVPB SCH ×2 (17:30→23:06)
[2020-03-21] MEDS: Vasopressin 20 UNIT in Sodium Chloride 0.9% 250 ML 250 ML IV SCH (17:42)
[2020-03-21] MEDS: Phytonadione 10 MG in Sodium Chloride 0.9% 50 ML IVPB SCH ×2 (17:43→21:10)
[2020-03-21 17:52] LABS: INR-International Normal Ratio 1.2; PTT 25.1 SEC (22.9-36.1)
[2020-03-21 17:56] LABS: ALT (SGPT) 169 U/L (8-55); AST (SGOT) 152 U/L (5-34); Albumin 3.3 g/dL (3.5-5.0); Alkaline Phosphatase 68 U/L (40-110); Anion Gap 11 mmol/L (10-20); BUN (Urea Nitrogen) 8 mg/dL (7.0-18.7); Bilirubin, Direct 0.1 mg/dL (0.1-0.3); Bilirubin, Total 0.3 mg/dL (0.2-1.2); Calc. Creatinine Clearance 0 mL/min (70-130); Calcium 8.1 mg/dL (7.8-10.44); Carbon Dioxide 21 mmol/L (22-29); Chloride 121 mmol/L (98-107); Estimated GFR-MDRD Greater than 90; Glucose 153 mg/dL (70-105); Lipase 22 U/L (8-78); Magnesium 1.7 mg/dL (1.6-2.6); Phosphorus 3.5 mg/dL (2.3-4.7); Potassium 3.3 mmol/L (3.5-5.1); Protein, Total 6.3 g/dL (6.0-8.3); Sodium 150 mmol/L (136-145)
[2020-03-21] MEDS ORDERED: Norepinephrine 8 MG/0.9% NS 250 ML ONE (18:20)
[2020-03-21] MEDS: Albuterol Sulfate 2.5 mg/3 ml Neb NEB SCH ×2 (18:22→21:46)
[2020-03-21 19:02] LABS: Actual Bicarbonate (HCO3a) 18.5 mEq/L (22-28); Base Excess (BEa) -7.2 mEq/L (-2.0 to +3.0); CO2 Tension 37.7 mmHg (35.0-45.0); Calcium, Ionized 1.19 mmol/L (1.12-1.30); Carboxyhemoglobin (COHb) 0.3 gm% (0.0-3.0); Hemoglobin (Hb) 11.2 g/dL (12.0-16.0); O2 Tension (PaO2) 422.3 mmHg (80.0-100.0); Potassium - ABG Lab 3.57 mmol/L (3.70-5.30); pH, Arterial 7.31 (7.35-7.45)
[2020-03-21 19:04] LABS: Puncture Site line
[2020-03-21 19:04] LABS: #Lymphocytes 1.2 thou/uL (1.20-3.40); #Monocytes 0.5 thou/uL (0.11-0.59); %Basophils 0.1 % (0.0-1.0); %Eosinophils 0.1 % (0.0-10.0); %Monocytes 3.4 % (0.0-10.0); %Neutrophils 87.5 % (42.0-75.0); Hemoglobin 11.1 g/dL (12.0-16.0); Mean Corpuscular HGB CONC 33.3 g/dL (32.0-36.0); Mean Corpuscular Hemoglobin 31.5 pg (27.0-31.0); Mean Corpuscular Volume 94.6 fL (78.0-98.0); Mean Platelet Volume 7.1 fL (7.4-10.4); Platelet Count 194 thou/uL (130-400); RBC Distribution Width 12.7 % (11.5-14.5); Red Blood Cell (RBC) Count 3.52 mill/uL (4.20-5.40); White Blood Cell (WBC) Count 13.7 thou/uL (4.8-10.8)
[2020-03-21 19:05] LABS: ALV-art Gradient 243.575 (0-20)
[2020-03-21] MEDS: Sodium Chloride 0.45% 1,000 ML IV SCH ×2 (19:14→23:06)
[2020-03-21] MEDS ORDERED: Phenylephrine 10 MG/NS 250 ML 250 ML IVPB SCH (19:45)
[2020-03-21] MEDS ORDERED: Norepinephrine 8 MG/0.9% NS 250 ML IVPB SCH (19:45)
[2020-03-21] MEDS: Levothyroxine Sodium 400 MCG in Sodium Chloride 0.9% 100 ML IVPB SCH (20:07)
[2020-03-21] MEDS ORDERED: Phenylephrine 10 MG in Sodium Chloride 0.9% 250 ML 250 ML IVPB SCH (20:30)
[2020-03-21] MEDS ORDERED: Magnesium Sulfate 4 GM in Sodium Chloride 0.9% 250 ML 250 ML IVPB SCH (21:00)
[2020-03-21] MEDS: Potassium Chloride 20 MEQ in Premix Bag 1 BAG IVPB SCH ×2 (21:05→21:33)
[2020-03-22 00:33] LABS: Actual Bicarbonate (HCO3a) 22.1 mEq/L (22-28); Base Excess (BEa) -2.2 mEq/L (-2.0 to +3.0); CO2 Tension 36.3 mmHg (35.0-45.0); Calcium, Ionized 1.18 mmol/L (1.12-1.30); Carboxyhemoglobin (COHb) 0.1 gm% (0.0-3.0); Hemoglobin (Hb) 11.5 g/dL (12.0-16.0)
[2020-03-22 00:38] LABS: ALV-art Gradient 140.825 (0-20); O2 Tension (PaO2) 526.8 mmHg (80.0-100.0); Puncture Site LINE
[2020-03-22 01:18] LABS: #Lymphocytes 0.6 thou/uL (1.20-3.40); #Monocytes 0.2 thou/uL (0.11-0.59); %Lymphocytes 3.4 % (21.0-51.0); %Neutrophils 95.6 % (42.0-75.0); Mean Corpuscular HGB CONC 31.8 g/dL (32.0-36.0); Mean Corpuscular Hemoglobin 30.2 pg (27.0-31.0); Mean Corpuscular Volume 94.9 fL (78.0-98.0); Mean Platelet Volume 7.2 fL (7.4-10.4); Platelet Count 193 thou/uL (130-400); RBC Distribution Width 12.9 % (11.5-14.5); Red Blood Cell (RBC) Count 3.63 mill/uL (4.20-5.40); White Blood Cell (WBC) Count 16.7 thou/uL (4.8-10.8)
[2020-03-22 01:24] LABS: INR-International Normal Ratio 1.2; Prothrombin Time 14.7 sec (12.0-14.7)
[2020-03-22 01:25] LABS: Hemoglobin A1c 5.1 % (4.0-6.0)
[2020-03-22 01:29] LABS: Bacteria/HPF None Seen HPF (None Seen); Bilirubin Negative (Negative); Blood, Urine 3+ (Negative); Clarity Clear (Clear); Glucose, Urine (Dipstick) Normal (Negative); Leukocyte Negative Leu/uL (Negative); Nitrite Negative (Negative); Protein, Urine (Dipstick) 30 mg/dL (Neg-Trace); RBC/HPF 0-3 HPF (0-3); Squamous Epithelial None Seen HPF (0-3); Urobilinogen Normal mg/dL (Less than 2)
[2020-03-22 01:42] LABS: ALT (SGPT) 179 U/L (8-55); AST (SGOT) 148 U/L (5-34); Albumin 3.5 g/dL (3.5-5.0); Alkaline Phosphatase 73 U/L (40-110); Anion Gap 13 mmol/L (10-20); BUN (Urea Nitrogen) 7 mg/dL (7.0-18.7); Bilirubin, Direct 0.1 mg/dL (0.1-0.3); Bilirubin, Total 0.3 mg/dL (0.2-1.2); Calc. Creatinine Clearance 0 mL/min (70-130); Calcium 8.3 mg/dL (7.8-10.44); Carbon Dioxide 21 mmol/L (22-29); Chloride 121 mmol/L (98-107); Estimated GFR-MDRD Greater than 90; Globulin 3.2 g/dL (2.4-3.5); Glucose 176 mg/dL (70-105); Lipase 15 U/L (8-78); Magnesium 2.9 mg/dL (1.6-2.6); Phosphorus 2.3 mg/dL (2.3-4.7); Potassium 3.8 mmol/L (3.5-5.1); Protein, Total 6.7 g/dL (6.0-8.3); Sodium 151 mmol/L (136-145); Troponin I 0.227 ng/mL (< 0.028)
[2020-03-22] MEDS ORDERED: Potassium Phosphate 20 MMOL in Sodium Chloride 0.9% 250 ML 250 ML IVPB SCH (02:00)
[2020-03-22] MEDS: Albuterol Sulfate 2.5 mg/3 ml Neb NEB SCH ×2 (02:14→06:22)
[2020-03-22] MEDS: Levothyroxine Sodium 400 MCG in Sodium Chloride 0.9% 100 ML IVPB SCH (02:47)
[2020-03-22 05:11] VITALS: TEMP 98.7
[2020-03-22 05:22] LABS: Actual Bicarbonate (HCO3a) 23.3 mEq/L (22-28); Base Excess (BEa) -1.3 mEq/L (-2.0 to +3.0); CO2 Tension 38.5 mmHg (35.0-45.0); Calcium, Ionized 1.17 mmol/L (1.12-1.30); Carboxyhemoglobin (COHb) 0.3 gm% (0.0-3.0); O2 Tension (PaO2) 162.1 mmHg (80.0-100.0); Potassium - ABG Lab 3.85 mmol/L (3.70-5.30)
[2020-03-22] MEDS: Sodium Chloride 0.45% 1,000 ML IV SCH ×2 (05:23→09:47)
[2020-03-22] MEDS: Piperacillin/Tazobactam 3.375 GM in Sodium Chloride 0.9% 100 ML IVPB SCH (05:23)
[2020-03-22 05:24] LABS: Puncture Site LINE
[2020-03-22 05:25] LABS: ALV-art Gradient 74.975 (0-20)
[2020-03-22 06:26] VITALS: BP 141/81
--- NOTE | 2020-03-22 07:22 | RAD ---
CHEST 1 VIEW: Date: 03/21/2020 HISTORY: Organ donor. COMPARISON: Radiograph same date. FINDINGS: Endotracheal tube tip in good position at the level of the clavicles. Left subclavian central venous catheter tips at the inferior SVC. No pneumothorax. Likely some background pulmonary edema. No significant effusion. IMPRESSION: Some subtle interstitial markings in the lung bases suggestive of edema. POS: HOME
--- NOTE | 2020-03-22 07:48 | RAD ---
Exam: Chest one view HISTORY:Organ donor. Comparison: 03/21/2020 FINDINGS: Lines and tubes: Stable endotracheal tube, nasogastric tube and left-sided subclavian vascular cathet er. Cardiac silhouette: Normal Aorta: Unremarkable Pulmonary vessels: Normal Costophrenic angles: Clear LUNGS: Stable patchy opacities in the lung parenchyma. Pneumothorax: None Osseous abnormalities: None IMPRESSION: Stable patchy opacities lung parenchyma suggesting interstitial edema.
[2020-03-22 07:54] LABS: INR-International Normal Ratio 1.2; PTT 23.3 SEC (22.9-36.1); Prothrombin Time 15.2 sec (12.0-14.7)
[2020-03-22 07:55] LABS: Hemoglobin 10.2 g/dL (12.0-16.0); Mean Corpuscular HGB CONC 32.9 g/dL (32.0-36.0); Mean Corpuscular Hemoglobin 30.9 pg (27.0-31.0); Mean Platelet Volume 6.9 fL (7.4-10.4); Platelet Count 164 thou/uL (130-400); RBC Distribution Width 12.9 % (11.5-14.5); Red Blood Cell (RBC) Count 3.29 mill/uL (4.20-5.40); White Blood Cell (WBC) Count 17.6 thou/uL (4.8-10.8)
[2020-03-22 08:00] LABS: ALT (SGPT) 163 U/L (8-55); AST (SGOT) 125 U/L (5-34); Albumin 3.2 g/dL (3.5-5.0); Alkaline Phosphatase 67 U/L (40-110); Anion Gap 11 mmol/L (10-20); BUN (Urea Nitrogen) 7 mg/dL (7.0-18.7); Bilirubin, Direct 0.1 mg/dL (0.1-0.3); Bilirubin, Total 0.2 mg/dL (0.2-1.2); Calc. Creatinine Clearance 0 mL/min (70-130); Calcium 8.1 mg/dL (7.8-10.44); Carbon Dioxide 23 mmol/L (22-29); Chloride 119 mmol/L (98-107); Estimated GFR-MDRD Greater than 90; Glucose 171 mg/dL (70-105); Lipase 11 U/L (8-78); Magnesium 2.4 mg/dL (1.6-2.6); Phosphorus 2.5 mg/dL (2.3-4.7); Potassium 3.4 mmol/L (3.5-5.1); Protein, Total 6.2 g/dL (6.0-8.3); Sodium 150 mmol/L (136-145)
[2020-03-22] MEDS: Vasopressin 20 UNIT in Sodium Chloride 0.9% 250 ML 250 ML IV SCH (09:47)
[2020-03-22 11:30] LABS: Band 3 % (5-11); Lymphocytes 1 % (21-51); MDiff Complete? YES; Monocytes 1 % (0-10); Neutrophil 95 % (42-75); Platelet Morphology Comment Appears Adequate; Polychromasia SLIGHT = 2-3 cells (100X) (0-2/hpf)
--- NOTE | 2020-03-25 16:08 | EKG ---
Test Reason : Blood Pressure : / mmHG Vent. Rate : 098 BPM Atrial Rate : 098 BPM P-R Int : 132 ms QRS Dur : 084 ms QT Int : 412 ms P-R-T Axes : 068 060 034 degrees QTc Int : 525 ms Normal sinus rhythm Prolonged QT Abnormal ECG When compared with ECG of 16-MAR-2020 13:10, (Unconfirmed) QT has lengthened Confirmed by MADDY HOUSE ([id number]) on 03/25/2020 4:08:42 PM Referred By: [place] Confirmed By:MADDY HOUSE
== END 2020-03-22 10:38 | disposition expired ==
LOC: SDC 15:02 → CCU 15:44 → SDC 03-22 10:38
DX: Z00.5 Encounter for examination of potential donor of organ and tissue (principal); Z91.013 Allergy to seafood
CPT/HCPCS: 36415; 71045; 80053; 81001; 82150; 82248; 82805; 83036; 83690; 83735; 84100; 84484; 85025; 85610; 85730; 86850; 86900; 86901; 87086; 87205; 93005; 93010; 93306; 94003; 94640; J1642; J2370; J2543; J2930; J3430; J3475; J3480; J3490; J7050; J7611